=== PATIENT | male | born 1955 | race African-American/Black ===

== ENCOUNTER 2020-11-08 12:30 | Outpatient (REF) | payer OTHER, SELFPAY ==
[2020-11-08 12:45] LABS: MANUAL DIFF FLAG NO
[2020-11-08 13:04] LABS: Basophils Percent Auto 0.4 % (0-2); Eosinophils Absolute Auto 0.2 X10*3/uL (0.0-0.4); Eosinophils Percent Auto 2.9 % (0-4); Hematocrit 41.8 % (42-52); Hemoglobin 14.2 g/dl (14.0-18.0); Imm Gran Abs Auto 0.02 X10*3/uL (0.00-0.03); Imm Gran Pct Auto 0.3 % (0.0-0.4); Lymphocytes Absolute Auto 2.6 X10*3/uL (1.2-4.9); Lymphocytes Percent Auto 32.9 % (20-40); Mean Corpuscular Hemoglobin 29.9 pg (27.0-33.0); Mean Platelet Volume 13.3 fL (9.4-12.4); Monocytes Absolute Auto 0.5 X10*3/uL (0.1-1.2); Monocytes Percent Auto 5.9 % (2-11); Neutrophils Absolute Auto 4.5 X10*3/uL (2.0-8.3); Neutrophils Percent Auto 57.6 % (45-73); Platelet Count 158 X10*3/uL (160-400); Red Blood Count 4.75 X10*6/uL (4.60-5.80); Red Cell Distribution Width 13.1 % (11.0-16.0); White Blood Count 7.8 X10*3/uL (4.8-10.8)
[2020-11-08 14:08] LABS: Alanine Aminotransferase 22 U/L (0-40); Albumin Level 4.2 g/dL (3.5-5.0); Alkaline Phosphatase 99 U/L (39-117); Anion Gap 11 (12-20); Aspartate Amino Transferase 20 U/L (5-37); Bilirubin Total 0.6 mg/dL (0.0-1.0); Blood Urea Nitrogen 20 mg/dL (9-16); Calcium 8.9 mg/dL (8.4-10.2); Carbon Dioxide 26 mmol/L (22-29); Chloride 108 mmol/L (96-108); Cholesterol 199 mg/dL; Estimated Glomerular Filt Rate 49; Glucose Fasting 88 mg/dL (60-99); HDL Cholesterol 40 mg/dL; LDL Cholesterol Calculated 147 mg/dl; Potassium 3.6 mmol/l (3.3-5.1); Sodium 141 mmol/L (135-145); Total Protein 6.8 g/dL (6.5-8.0); Triglycerides 60 mg/dL
[2020-11-08 14:16] LABS: Prostate Specific Antigen 0.12 ng/mL (<0.05-4.0)
== END 2020-11-08 12:31 | disposition home or self-care (01) ==
LOC: HO.LAB 12:30
PROVIDERS: PCP Internal Medicine Medical Oncology; Visit Provider Internal Medicine Medical Oncology
DX: C61 Malignant neoplasm of prostate (principal); E66.3 Overweight; I10 Essential (primary) hypertension
CPT/HCPCS: 36415; 80053; 80061; 84153; 85025

== ENCOUNTER → 2020-12-09 10:08 | Outpatient (BNVA) | payer OTHER, SELFPAY | PROVIDERS: PCP Internal Medicine Medical Oncology; Visit Provider Urology | DX: C61 Malignant neoplasm of prostate (principal); R39.12 Poor urinary stream | CPT/HCPCS: 51798; 81002 ==

== ENCOUNTER → 2021-01-14 13:52 | Outpatient (BNVA) | payer OTHER, SELFPAY | PROVIDERS: PCP Internal Medicine Medical Oncology; Visit Provider Urology | DX: C61 Malignant neoplasm of prostate (principal); R39.12 Poor urinary stream | CPT/HCPCS: 52000; 81002 ==

== ENCOUNTER → 2021-02-15 15:07 | Outpatient (BNVA) | payer OTHER, SELFPAY | PROVIDERS: PCP Internal Medicine Medical Oncology; Visit Provider Urology ==

== ENCOUNTER 2024-06-30 11:29 | Outpatient (REF) | payer BC, SELFPAY ==
[2024-06-30 11:50] LABS: MANUAL DIFF FLAG NO
[2024-06-30 12:04] LABS: Basophils Absolute Auto 0.1 X10*3/uL (0.0-0.2); Basophils Percent Auto 0.8 % (0-2); Eosinophils Absolute Auto 0.3 X10*3/uL (0.0-0.4); Eosinophils Percent Auto 3.2 % (0-4); Hematocrit 45.5 % (42.0-52.0); Hemoglobin 15.7 g/dl (14.0-18.0); Imm Gran Abs Auto 0.04 X10*3/uL (0.00-0.03); Imm Gran Pct Auto 0.4 % (0.0-0.4); Lymphocytes Percent Auto 21.5 % (20-40); Mean Corpuscular HGB Conc 34.5 g/dl (31.0-36.0); Mean Corpuscular Hemoglobin 30.5 pg (27.0-33.0); Mean Corpuscular Volume 88.5 fL (80.0-98.0); Mean Platelet Volume 12.3 fL (9.4-12.4); Monocytes Absolute Auto 0.9 X10*3/uL (0.1-1.2); Monocytes Percent Auto 9.5 % (2-11); Neutrophils Absolute Auto 5.9 x10*3/uL (2.0-8.3); Neutrophils Percent Auto 64.6 % (45-73); Platelet Count 207 X10*3/uL (160-400); Red Blood Count 5.14 X10*6/uL (4.60-5.80); Red Cell Distribution Width 12.8 % (11.0-16.0); White Blood Count 9.1 X10*3/uL (4.8-10.8)
[2024-06-30 12:39] LABS: Alanine Aminotransferase 71 U/L (0-40); Albumin Level 4.3 g/dL (3.5-5.0); Alkaline Phosphatase 123 U/L (39-117); Anion Gap 13 (12-20); Aspartate Amino Transferase 39 U/L (5-37); Bilirubin Total 0.5 mg/dL (0.0-1.0); Blood Urea Nitrogen 42 mg/dL (9-16); Calcium 10.2 mg/dL (8.4-10.2); Carbon Dioxide 28 mmol/L (22-29); Chloride 105 mmol/L (96-108); Estimated Glomerular Filt Rate 39; Glucose Random 93 mg/dL (60-115); Potassium 3.9 mmol/L (3.3-5.1); Sodium 142 mmol/L (135-145); Total Protein 7.5 g/dL (6.5-8.0)
[2024-06-30 12:50] LABS: Prostate Specific Antigen 0.22 ng/mL (<0.05-4.0)
== END 2024-06-30 11:30 | disposition home or self-care (01) ==
LOC: HO.LAB 11:29
PROVIDERS: PCP Internal Medicine Medical Oncology; Visit Provider Internal Medicine Medical Oncology
DX: D36.9 Benign neoplasm, unspecified site (principal)
CPT/HCPCS: 36415; 80053; 84153; 85025

== ENCOUNTER 2024-07-04 09:11 | Outpatient (REF) | payer BC, SELFPAY ==
--- NOTE | ~2024-07-04 | US_ITS ---
EXAMINATION: ULTRASOUND OF KIDNEYS WITH RENAL ARTERY DOPPLER CLINICAL INFORMATION: Hypertension. COMPARISON: None available. TECHNIQUE: Ultrasound of the kidneys was performed along with color flow Doppler imaging and velocity measurements in the proximal mid and distal renal arteries. Aortic velocities were measured and renal/aortic ratios were calculated. Interlobar resistive indices were measured bilaterally. FINDINGS: The kidneys appeared normal with the exception of mild pelvocaliectasis on the right. The right kidney measures 9.7 x 4.0 x 5.4 cm and the left kidney measures 10.1 x 5.0 x 4.5 cm. No renal masses, renal stones or hydronephrosis is seen. Renal cortical thickness appears normal. Velocity measurements in the proximal mid and distal renal arteries are within normal limits with the exception of an elevated velocity at the right renal ostia of 193 cm/s (180 cm/s is considered the upper limits of normal). Velocity in the aorta is 74 cm/s and, therefore, the renal aortic ratios are normal, 2.6 on the right and 2.1 on the left. Interlobar resistive indices were measured bilaterally and are all normal. US/US renal doppler IMPRESSION: 1. There is mild pelvocaliectasis on the right. 2. Borderline elevated velocities in the right proximal renal artery. 3. CTA of the kidneys could be useful along with delayed views (CT urogram) to evaluate the right collecting system. Electronically signed by: Gama Donaldson MD 07/09/2024 05:05 PM EDT
--- NOTE | ~2024-07-04 | US_ITS ---
EXAMINATION: ULTRASOUND OF KIDNEYS WITH RENAL ARTERY DOPPLER CLINICAL INFORMATION: Hypertension. COMPARISON: None available. TECHNIQUE: Ultrasound of the kidneys was performed along with color flow Doppler imaging and velocity measurements in the proximal mid and distal renal arteries. Aortic velocities were measured and renal/aortic ratios were calculated. Interlobar resistive indices were measured bilaterally. FINDINGS: The kidneys appeared normal with the exception of mild pelvocaliectasis on the right. The right kidney measures 9.7 x 4.0 x 5.4 cm and the left kidney measures 10.1 x 5.0 x 4.5 cm. No renal masses, renal stones or hydronephrosis is seen. Renal cortical thickness appears normal. Velocity measurements in the proximal mid and distal renal arteries are within normal limits with the exception of an elevated velocity at the right renal ostia of 193 cm/s (180 cm/s is considered the upper limits of normal). Velocity in the aorta is 74 cm/s and, therefore, the renal aortic ratios are normal, 2.6 on the right and 2.1 on the left. Interlobar resistive indices were measured bilaterally and are all normal. US/US renal BI IMPRESSION: 1. There is mild pelvocaliectasis on the right. 2. Borderline elevated velocities in the right proximal renal artery. 3. CTA of the kidneys could be useful along with delayed views (CT urogram) to evaluate the right collecting system. Electronically signed by: Gama Donaldson MD 07/09/2024 05:05 PM EDT
== END 2024-07-04 09:12 | disposition home or self-care (01) ==
LOC: HO.US 09:11
PROVIDERS: PCP Internal Medicine Medical Oncology; Visit Provider Internal Medicine Medical Oncology
DX: I12.9 Hypertensive chronic kidney disease with stage 1 through stage 4 chronic kidney disease, or unspecified chronic kidney disease (principal); N18.31 Chronic kidney disease, stage 3a
CPT/HCPCS: 76775; 93975

== ENCOUNTER 2024-07-18 09:51 | Outpatient (REF) | payer BC, SELFPAY ==
[2024-07-18 11:22] LABS: Blood Urea Nitrogen 24 mg/dL (9-16); Estimated Glomerular Filt Rate 52
[2024-07-18 11:30] LABS: Prostate Specific Antigen 0.31 ng/mL (<0.05-4.0)
== END 2024-07-18 09:52 | disposition home or self-care (01) ==
LOC: HO.LAB 09:51
PROVIDERS: PCP Internal Medicine Medical Oncology; Visit Provider Internal Medicine Medical Oncology
DX: C61 Malignant neoplasm of prostate (principal); E66.3 Overweight; N18.31 Chronic kidney disease, stage 3a; I10 Essential (primary) hypertension; Z12.5 Encounter for screening for malignant neoplasm of prostate
CPT/HCPCS: 36415; 82565; 84153; 84520

== ENCOUNTER 2025-02-20 14:06 | Outpatient (AMB) | payer BC, SELFPAY ==
--- NOTE | 2025-02-20 14:16 | MHC.OFFVIS ---
Intake Visit Reasons: Prostate cs- transfer of care Intake Note: Patient is present for PROSTATE- TRANSFER OF CARE Urology Medication:TAMSULOSIN,OXYBUTYNIN Antibiotic Allergy:NONE Blood Thinner:NONE Automatic Pilot Mechanic Required: No Allergies No Known Allergies Allergy (Verified 02/20/25 14:17) HPI Comments Details: Familia is a very pleasant male. He is a patient of Dr. Tobar. He is seen for the following urologic conditions - prostate cancer - recurrent PSA Slowly rising PSA Recently completed PET-CT scan at [facility] No evidence of PSMA recurrence We will continue to follow PSA every six-month Rising PSA Imaging - 10/14 PET-CT no evidence of PSA recurrence Prostate cancer Main issue is weakness of stream, feelings of burning Diagnosed with prostate cancer in 2013. Primary therapy robotic assisted laparoscopic prostatectomy at [facility] Current PSA - 11/11 0.12, 07/15 0.3 Cystoscopy 01/09 - open bladder neck [facility] Medical History Frequent urination History of prostate cancer Family History Brother Prostate cancer Review of Systems Const Denies chills and Denies fever(s) Card Reports no additional complaints and Denies syncope Resp Denies cough GI Denies abdominal pain and Denies heartburn Reports as per HPI and Denies change in libido Neuro Denies syncope Psych Denies change in libido Endo Denies change in libido Physical Exam Const General: cooperative, healthy appearing, comfortable and no acute distress Orientation/consciousness: patient oriented x3 HEENT Face and sinus: Yes normal facial exam Mouth: moist mucous membranes Neck Neck: Yes normal visual inspection, Yes full ROM and Yes trachea midline Chest Chest palpation & inspection: normal inspection of the chest Resp Effort & Inspection: normal respiratory effort, able to speak in complete sentences and no respiratory distress GI Inspection: Yes normal to inspection Back/Spine/Pelvis Cervical Spine: normal cervical lordosis Thoracic/Lumbar Spine: thoracic and lumbar spine normal to inspection Skin General skin exam: no rashes or lesions noted Neuro General: patient oriented x3, gait normal, tone normal and moves all extremities Extrem General: Yes normal to inspection and Yes capillary refill normal Assessment & Plan Assessment & Plan (1) Prostate cancer: Code(s): C61 - Malignant neoplasm of prostate Category: Medical (2) Weak urinary stream: Code(s): R39.12 - Poor urinary stream Category: Medical Plan Six-month follow-up repeat PSA office Orders: Orders Prostate Specific Antigen 6 Months C61 - Malignant neoplasm of prostate Patient Instructions: This note is constructed using voice recognition software. While every effort has been made to ensure accuracy crushing foreman errors may have been included. Imaging studies, laboratory and physical exam results were discussed and reviewed in detail. No major barriers to patient understanding were identified. An opportunity to ask questions regarding the treatment plan was provided. All questions were answered. The patient expressed understanding and agreement with the above treatment plan. The patient is aware they should contact our office by phone for worsening of their current condition or the appearance of new urologic symptoms. Compliance is encouraged with any medications and followup testing that is ordered. It is a privilege to participate in the urologic care of your patient. If you have any questions or concerns regarding treatment for the above conditions, or other urologic issues, please do not hesitate to contact me. The office telephone contact is [phone]. Sincerely, Dr Cameron Wright MD, [facility] - Urology Compassionate Specialist Care for the Genitourinary System Coding Level of Care Code Est Pt Level 3 (98878) Complex EM visit Add On G2211 Diagnoses Prostate cancer C61 Weak urinary stream R39.12
--- OUTSIDE RECORDS SUMMARY | 2025-02-20 14:24 | XMS_ITS | Patient Health Record ---
Author Organization Man Tobar III, MD Address [address] [address] Care Team Providers Care Astronomy Instructor Name Role Phone Man Tobar Primary Care Provider Allergies Allergen (clinical drug ingredient) Drug/Non Drug Allergy documented on EMR Reaction Allergy Type Onset Date Status Penicillin Unknown Drug Allergy Active Results Component Value Reference Range Notes US renal doppler Reviewed date:07/21/2024 06:00:41 AM Interpretation: Performing Lab: Notes/Report: [address] [address] Ultrasound Report Signed Patient: Familia Pop MR#: [id number] : 1955 Acct:[id number] Age/Sex: 68 / M ADM Date: 07/04/24 Loc: .US Attending Dr: Man Tobar MD Ordering Physician: Man Tobar MD Date of Service: 07/04/24 Procedure(s): US renal doppler Accession Number(s): [id number] cc: Man Tobar MD EXAMINATION: ULTRASOUND OF KIDNEYS WITH RENAL ARTERY DOPPLER CLINICAL INFORMATION: Hypertension. COMPARISON: None available. TECHNIQUE: Ultrasound of the kidneys was performed along with color flow Doppler imaging and velocity measurements in the proximal mid and distal renal arteries. Aortic velocities were measured and renal/aortic ratios were calculated. Interlobar resistive indices were measured bilaterally. FINDINGS: The kidneys appeared normal with the exception of mild pelvocaliectasis on the right. The right kidney measures 9.7 x 4.0 x 5.4 cm and the left kidney measures 10.1 x 5.0 x 4.5 cm. No renal masses, renal stones or hydronephrosis is seen. Renal cortical thickness appears normal. Velocity measurements in the proximal mid and distal renal arteries are within normal limits with the exception of an elevated velocity at the right renal ostia of 193 cm/s (180 cm/s is considered the upper limits of normal). Velocity in the aorta is 74 cm/s and, therefore, the renal aortic ratios are normal, 2.6 on the right and 2.1 on the left. Interlobar resistive indices were measured bilaterally and are all normal. US/US renal doppler IMPRESSION: 1. There is mild pelvocaliectasis on the right. 2. Borderline elevated velocities in the right proximal renal artery. 3. CTA of the kidneys could be useful along with delayed views (CT urogram) to evaluate the right collecting system. Electronically signed by: Gama Donaldson MD 07/09/2024 05:05 PM EDT Dictated By: Gama Donaldson MD Signed By: <Electronically signed by Gama Donaldson MD in OV> 07/09/24 1705 DD/ 0954 TD/TT: 07/04/24 1012 Public Administration Teacher: [place] [address] Ultrasound Report Signed Patient: Estrada Pop MR#: [id number] : 1955 Acct:[id number] Age/Sex: 68 / M ADM Date: 07/04/24 Loc: .US Attending Dr: Man Tobar MD Ordering Physician: Man Tobar MD Date of Service: 07/04/24 Procedure(s): US lory al doppler Accession Number(s): [id number] cc: Man Tobar MD EXAMINATION: ULTRASOUND OF KIDNEY S WITH RENAL ARTERY DOPPLER CLINICAL INFORMATION: Hypertension. COMPARISON: None available. TECHNIQUE: Ultrasound of the kidneys was performed along with color flow Doppler imaging and velocity measurements in the proximal mid and distal renal arteries. Aortic velocities were measured and renal/aortic ratios were calculated. Interlob ar resistive indices were measured bilaterally. FINDINGS: The kidneys appeared normal with the exception of mild pelvocaliectasis on the right. The ri ght kidney measures 9.7 x 4.0 x 5.4 cm and the left kidney measures 10.1 x 5.0 x 4.5 cm. No renal masses, renal stones or hydronephrosis is se en. Renal cortical thickness appears normal. Velocity measurement s in the proximal mid and distal renal arteries are within normal limits with the exception of an elevated velocity at the right renal ostia of 193 cm/s (180 cm/s is considered the upper limits of normal). Velocity in the aort a is 74 cm/s and, therefore, the renal aortic ratios are normal, 2 .6 on the right and 2.1 on the left. Interlobar resistive indices we re measured bilaterally and are all normal. U S/US renal doppler IMPRESSION: 1. There is mild pelvocaliectasis on the right. 2. Borderline elevat ed velocities in the right proximal renal artery. 3. CTA of the kidney s could be useful along with delayed views (CT urogram) to evaluate the right collecting system. Electronically christine d by: Gama Donaldson MD 07/09/2024 05:05 PM EDT RP Dictated By: Gama Donaldson MD Signed By: <Electronically signed by Gama Donaldson MD in OV> 07/09/24 1705 DD/ 0954 TD/TT: 07/04/24 1012 Public Administration Teacher: US renal BI Reviewed date:07/21/2024 06:00:41 AM Interpretation: Performing Lab: Notes/Report: [address] [address] Ultrasound Report Signed Patient: Familia Pop MR#: [id number] : 1955 Acct:[id number] Age/Sex: 68 / M ADM Date: 07/04/24 Loc: HO.US Attending Dr: Man Tobar MD Ordering Physician: Man Tobar MD Date of Service: 07/04/24 Procedure(s): US renal BI Accession Number(s): [id number] cc: Man Tobar MD EXAMINATION: ULTRASOUND OF KIDNEYS WITH RENAL ARTERY DOPPLER CLINICAL INFORMATION: Hypertension. COMPARISON: None available. TECHNIQUE: Ultrasound of the kidneys was performed along with color flow Doppler imaging and velocity measurements in the proximal mid and distal renal arteries. Aortic velocities were measured and renal/aortic ratios were calculated. Interlobar resistive indices were measured bilaterally. FINDINGS: The kidneys appeared normal with the exception of mild pelvocaliectasis on the right. The right kidney measures 9.7 x 4.0 x 5.4 cm and the left kidney measures 10.1 x 5.0 x 4.5 cm. No renal masses, renal stones or hydronephrosis is seen. Renal cortical thickness appears normal. Velocity measurements in the proximal mid and distal renal arteries are within normal limits with the exception of an elevated velocity at the right renal ostia of 193 cm/s (180 cm/s is considered the upper limits of normal). Velocity in the aorta is 74 cm/s and, therefore, the renal aortic ratios are normal, 2.6 on the right and 2.1 on the left. Interlobar resistive indices were measured bilaterally and are all normal. US/US renal BI IMPRESSION: 1. There is mild pelvocaliectasis on the right. 2. Borderline elevated velocities in the right proximal renal artery. 3. CTA of the kidneys could be useful along with delayed views (CT urogram) to evaluate the right collecting system. Electronically signed by: Gama Donaldson MD 07/09/2024 05:05 PM EDT Dictated By: Gama Donaldson MD Signed By: <Electronically signed by Gama Donaldson MD in OV> 07/09/24 1705 DD/ 0954 TD/TT: 07/04/24 1012 Public Administration Teacher: [address] [address] Ultrasound Report Signed Patient: Estrada Pop MR#: [id number] : 1955 Acct:[id number] Age/Sex: 68 / M ADM Date: 07/04/24 Loc: HO.US Attending Dr: Man Tboar MD Ordering Physician: Man Tobar MD Date of Service: 07/04/24 Procedure(s): US lory al BI Accession Number(s): [id number] cc: Man Tobar MD EXAMINATION: ULTRASOUND OF KIDNEY S WITH RENAL ARTERY DOPPLER CLINICAL INFORMATION: Hypertension. COMPARISON: None available. TECHNIQUE: Ultrasound of the kidneys was performed along with color flow Doppler imaging and velocity measurements in the proximal mid and distal renal arteries. Aortic velocities were measured and renal/aortic ratios were calculated. Interlob ar resistive indices were measured bilaterally. FINDINGS: The kidneys appeared normal with the exception of mild pelvocaliectasis on the right. The ri ght kidney measures 9.7 x 4.0 x 5.4 cm and the left kidney measures 10.1 x 5.0 x 4.5 cm. No renal masses, renal stones or hydronephrosis is se en. Renal cortical thickness appears normal. Velocity measurement s in the proximal mid and distal renal arteries are within normal limits with the exception of an elevated velocity at the right renal ostia of 193 cm/s (180 cm/s is considered the upper limits of normal). Velocity in the aort a is 74 cm/s and, therefore, the renal aortic ratios are normal, 2 .6 on the right and 2.1 on the left. Interlobar resistive indices we re measured bilaterally and are all normal. U S/US renal BI IMPRESSION: 1. There is mild pelvocaliectasis on the right. 2. Borderline elevat ed velocities in the right proximal renal artery. 3. CTA of the kidney s could be useful along with delayed views (CT urogram) to evaluate the right collecting system. Electronically christine d by: Gama Donaldson MD 07/09/2024 05:05 PM EDT Dictated By: Gama Donaldson MD Signed By: <Electronically signed by Gama Donaldson MD in OV> 07/09/24 1705 DD/ 0954 TD/TT: 07/04/24 1012 Public Administration Teacher: COLE[place] Complete Blood Count Auto Di ff Reviewed date:07/02/2024 10:45:22 AM Interpretation: Performing Lab:[facility], [address] [place] [id number] Notes/Report: White Blood Count 9.1 4.8-10.8 X10*3/uL Red Blood Count 5.14 4.60-5.80 X10*6/uL Hemoglobin 15.7 14.0-18.0 g/dl Hematocrit 45.5 42.0-52.0 % Mean Corpuscular Volume 88.5 80.0-98.0 fL Mean Corpuscular Hemoglobin 30.5 27.0-33.0 pg Mean Corpuscular HGB Conc 34.5 31.0-36.0 g/dl Red Cell Distribution Width 12.8 11.0-16.0 % Platelet Count 207 160-400 X10*3/uL Mean Platelet Volume 12.3 9.4-12.4 fL Neutrophils Percent Auto 64.6 45-73 % Imm Gran Pct Auto 0.4 0.0-0.4 % Lymphocytes Percent Auto 21.5 20-40 % Monocytes Percent Auto 9.5 2-11 % Eosinophils Percent Auto 3.2 0-4 % Basophils Percent Auto 0.8 0-2 % NRBC Pct Auto 0.0 0.0-0.2 /100WBC Neutrophils Absolute Auto 5.9 2.0-8.3 x10*3/u L Imm Gran Abs Auto 0.04 0.00-0.03 X10*3/uL Lymphocytes Absolute Auto 2.0 1.2-4.9 X10*3/u L Monocytes Absolute Auto 0.9 0.1-1.2 X10*3/uL Eosinophils Absolute Auto 0.3 0.0-0.4 X10*3/u L Basophils Absolute Auto 0.1 0.0-0.2 X10*3/uL NRBC Abs Auto 0.000 0.0-0.012 X10*3/uL Comprehensive Met. Panel Reviewed date:07/02/2024 10:45:22 AM Interpretation: Performing Lab:[facility], [address] [place] [phone] Notes/Report: Sodium 142 135-145 mmol/L Potassium 3.9 3.3-5.1 mmol/L Chloride 105 96-108 mmol/L Carbon Dioxide 28 22-29 mmol/L Anion Gap 13 12-20 Blood Urea Nitrogen 42 9-16 mg/dL Creatinine 1.77 0.5-1.4 mg/dL Estimated Glomerular Filt Rate 39 NOTE: For -[place] individuals, multiply the result by 1.210. Chronic Kidney Disease: Estimated GFR < 60 mL/min/1.73m2 Severe Kidney Disease: Estimated GFR < 15 mL/min/1.73m2 Glucose Random 93 60-115 mg/dL Calcium 10.2 8.4-10.2 mg/dL Bilirubin Total 0.5 0.0-1.0 mg/dL Aspartate Amino Transferase 39 5-37 U/L Alanine Aminotransferase 71 0-40 U/L Total Protein 7.5 6.5-8.0 g/dL Albumin Level 4.3 3.5-5.0 g/dL Alkaline Phosphatase 123 39-117 U/L Prostate Specific Antigen Reviewed date:07/02/2024 10:45:22 AM Interpretation: Performing Lab:[facility], [address] [place] [phone] Notes/Report: Prostate Specific Antigen 0.22 <0.05-4.0 ng/mL PSA methodology: Garcia Alinity i Chemiluminescent Microparticle Immunoassay (CMIA) Blood Urea Nitrogen Reviewed date:08/04/2024 07:48:19 AM Interpretation: Performing Lab:[facility], [address] [place] [phone] Notes/Report: Blood Urea Nitrogen 24 9-16 mg/dL Creatinine Reviewed date:08/04/2024 07:48:19 AM Interpretation: Performing Lab:[facility], [address] [place] [phone] Notes/Report: Creatinine 1.36 0.5-1.4 mg/dL Estimated Glomerular Filt Rate 52 NOTE: For -[place] individuals, multiply the result by 1.210. Chronic Kidney Disease: Estimated GFR < 60 mL/min/1.73m2 Severe Kidney Disease: Estimated GFR < 15 mL/min/1.73m2 Prostate Specific Antigen Reviewed date:08/04/2024 07:48:19 AM Interpretation: Performing Lab:[facility], [address] [place] [phone] Notes/Report: Prostate Specific Antigen 0.31 <0.05-4.0 ng/mL PSA methodology: Garcia Alinity i Chemiluminescent Microparticle Immunoassay (CMIA) Reason For Referral Reason Consult and treat History of Prostate Cancer Diagnosis 1 Malignant neoplasm o f prostate (C61) Referral Organization Man Tobar III, MD Referring Provider First Name Man Referring Provider Last Name Amadou Referring Provider Speciality Internal M edicine Referred Provider Gage Lee Referred Provider Specialty Urology General Notes Yvonne Black 2023 01:59:43 PM EDT > Referral faxed with progress notes and attachments., Mauro 08/20/2024 11:06:50 AM > Dr. Tobar would like the patient to be seen sooner due to having pelvic pain base of penis. Reached out to the office to schedule an appointment, the office stated they have reached out to the patient regarding an outstanding balance the patient has. They spoke with the patient on 07/15/24 and they patient stated he was going to call their office back in which he did not. Patient was called from Dr. Tobar's office and made aware, Mauro08/21/2024 02:57:46 PM > Appointment was scheduled with the patient directly Referral Priority Routine Referral Appointment Date 09/02/2024 Reason Transfer of Care E valuate and Treat Prostate Cancer Diagnosis 1 Malignant neoplasm o f prostate (C61) Referral Organization Man Tobar III, MD Referring Provider First Name Man Referring Provider Last Name Amadou Referring Provider Speciality Internal M edicine Referred Provider Cameron Wright, ([place]) Referred Provider Specialty Urology General Notes Mauro 01/05/2025 10:47:04 AM > Referral faxed Referral Priority Routine Referral Appointment Date 02/20/2025 Medications Medication SIG (Take, Route, Frequency, Duration) Notes Start Date End Date Status Lisinopril 20 MG 1 tablet Orally Once a day 12/25/2024 Active Senna 8.6 MG 2 tablets at bedtime Orally Once a day 12/15/2024 Active amLODIPine Besylate 10 MG 1 tablet Orall y Once a day 12/25/2024 Active Acetaminophen 325 MG 2 capsules Orally e very 6 hrs 12/15/2024 Active Mirtazapine 7.5 MG 1 tablets at bedtime Orally Once a day 12/15/2024 Active Clopidogrel Bisulfate 75 MG 1 tablet Ora lly Once a day 12/15/2024 Active Atorvastatin Calcium 80 MG 1 tablet Oral ly Once a day Active Carvedilol 12.5 MG 1 tablet with food Orally Twice a day 12/15/2024 Active Aspirin 81 81 MG 1 tablet Orally Once a day 12/15/2024 Active Immunizations Vaccine Route Administration Date Status Comme nts Influenza Unknown 08/21/2014 Administered Social History Tobacco Use: Social History Observation Description Date Details (start date - stop date) Former Smoker NA - NA Tobacco Control (Standard) Question Answer Notes Tobacco use: Former smoker How long has it been since you last smoked? 3-6 months Problems Problem Type SNOMED Code ICD Code Onset Dates Problem Status W/U Status Risk Notes Problem 7264209 Former smoker (Z87.891) Active confirmed He stopped smoking during his last hospitalizati on. We made a plan for a strategy to prevent relapse in times of stress or illness. Problem Overweight (E66.3) Active confirmed His body mass index is 27. We have discussed his diet and nutrition. He will consume a diet low in calories, sodium and animal fat. Problem 516666000 Malignant neoplasm of prostate (C61) Active confirmed His PSA in August 2024 was 0.31 consistent with biochemical relapse. He had a PSMA PET CT scan October 01, 2024 that showed no sign of metastatic disease. He will continue to be followed by urology. Problem 81079920 Aphasia (R47.01) Active confirmed He is alert but aphasic. He is able to follow commands. His speech is understandabl e. He is not able to comprehend complex statements are commands. Problem Closed fracture of clavicle (83757408) Fracture of unspecified part of left clavicle, initial encounter for closed fracture (S42.002A) Active confirmed Fracture has healed but the bone is distorted. He reports it is not painful. Problem Allergy to penicillin (90138017) Allergy status to penicillin (Z88.0) Active confirmed Problem 75799661 Essential hypertension (I10) Active confirmed His blood pressure is currently stable and the current regimen was continued. The systolic blood pressure will be kept below 150. Problem 63342867 Depressive disorder, not elsewhere classified (F32.9) Active confirmed His depression is mild but present. He was continued on current therapy and will be followed carefully.. Problem 563950267 Urinary incontinence (R32) Active confirmed He continues to experience mild urinary incontinence. This is from the prostatectomy . Problem 455611837 Right hemiplegia (G81.91) Active confirmed He was able to walk with a cane. The right upper extremity is densely week. He continues home OT and PT. Problem 162846752 Expressive aphasia (R47.01) Active confirmed Problem 639229692 Adenomatous polyp (D36.9) Active confirmed Coronary colonoscopy November 18, 2014 he had a tubular adenoma of the colon. He is likely due for colonoscopy and will be referred. Problem 928306301 Chronic kidney disease, stage 3a (N18.31) Active confirmed His renal function has been stable lately. Most recent BUN is 21 with a creatinine of 1.53. 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 He was admitted to [facility] where he underwent thrombectomy but not a lytic therapy. He is now living at home. He has services and therapies. His blood pressure is stable. Problem 8850732 Right homonymous hemianopsia (H53.461) Active confirmed This deficit will be followed with speech ttherapy. Vital Signs Heart Rate 55 /min 01/02/2025 Temperature 97.9 degrees Fahrenheit 01/02/2025 Blood pressure diastolic 80 mm Hg 01/02/2025 Height 68 in 01/02/2025 Blood pressure systolic 135 mm Hg 01/02/2025 Weight 181 lbs 01/02/2025 BMI 27.52 kg/m2 01/02/2025 Encounters Encounter Location Date Provider Diagnosis Man Tobar III, MD [address] [place] [address] [place] [id number] 06/27/2024 Man Tobar Overweight E66.3 ; Essential hypertension I10 ; Malignant neoplasm of prostate C61 ; Depressive disorder, not elsewhere classified F32.9 ; Urinary incontinence R32 ; Tobacco dependence F17.200 and Adenomatous polyp D36.9 Man Tobar III, MD [address] [place] [address] [place] [address] 07/02/2024 Man Tobar Malignant neoplasm o f prostate C61 ; Overweight E66.3 ; Chronic kidney disease, stage 3a N18.31 ; Elevated blood pressure I10 ; Depressive disorder, not elsewhere classified F32.9 ; Urinary incontinence R32 and Tobacco dependence F17.200 Man Tobar III, MD [address] [place] [address] [place] [phone] 07/23/2024 Man Tobar Essential hypertensi on I10 ; Malignant neoplasm of prostate C61 ; Depressive disorder, not elsewhere classified F32.9 ; Urinary incontinence R32 ; Overweight E66.3 ; Tobacco dependence F17.200 and Chronic kidney disease, stage 3a N18.31 Man Tobar III, MD [address] [place] [address] [place] [address] 08/20/2024 Man Tobar Left groin pain R10. 32 ; Essential hypertension I10 ; Malignant neoplasm of prostate C61 ; Depressive disorder, not elsewhere classified F32.9 ; Urinary incontinence R32 ; Fracture of unspecified part of left clavicle, initial encounter for closed fracture S42.002A ; Former smoker Z87.891 ; Overweight E66.3 and Chronic kidney disease, stage 3a N18.31 Man Tobar III, MD [address] [place] [address] [place] [address] 01/02/2025 Man Tobar Essential hypertensi on I10 ; Cerebrovascular accident (CVA) due to occlusion of left middle cerebral artery I63.512 ; Overweight E66.3 ; Malignant neoplasm of prostate C61 ; Depressive disorder, not elsewhere classified F32.9 ; Urinary incontinence R32 ; Fracture of unspecified part of left clavicle, initial encounter for closed fracture S42.002A ; Chronic kidney disease, stage 3a N18.31 ; Former smoker Z87.891 ; Aphasia R47.01 ; Right hemiplegia G81.91 and Right homonymous hemianopsia H53.461 Man Tobar III, MD [address] [place] [address] [place] [address] 06/26/2024 Man Tobar III, MD [address] [place] [address] [place] [address] 07/02/2024 Man Tobar Chronic kidney disea se, stage 3a N18.31 and Elevated blood pressure I10 Man Tobar III, MD [address] [place] [address] [place] [address] 07/07/2024 Man Tobar III, MD [address] [place] [address] [place] [address] 07/15/2024 Man Tobar III, MD [address] [place] [address] [place] [address] 10/06/2024 Man Tobar III, MD [address] [place] [address] 12/15/2024 Man Tobar III, MD [address] [place] [place] [address] 12/17/2024 Man Tobar III, MD [address] [place] [address] 12/18/2024 Man Tobar III, MD [address] [place] [address] 12/19/2024 Man Tobar III, MD [address] [place] [address] 12/22/2024 Man Tobar III, MD [address] [place] [address] [place] [address] 12/24/2024 Man Tobar III, MD [address] [place] [address] [place] [address] 12/25/2024 Man Tobar III, MD [address] [place] [address] [place] [address] 12/26/2024 Man Tobar III, MD [address] [place] [address] 12/29/2024 Man Tobar III, MD [address] [place] [address] [place] [address] 12/30/2024 Man Tobar III, MD [address] [place] [address] [place] [address] 01/20/2025 Man Tobar III, MD [address] [place] [address] [place] [address] 01/20/2025 Man Tobar III, MD [address] [place] [address] 02/04/2025 Man Tobar III, MD [address] [place] [address] [place] [address] 02/13/2025 Man Tobar III, MD [address] [place] [address] [place] [address] 02/16/2025 Man Tobar Assessments Encounter Date Diagnosis (ICD Code) Assessment Notes Treat ment Notes Treatment Clinical Notes 06/27/2024 Overweight (ICD-10 - E66.3) His body mass index is 26. We have discussed diet and nutrition. I have explained the details of a low sodium low cholesterol weight reduction diet. We made a plan to lose weight at a rate of one half of a pound per week until the body mass index is in the middle of the normal range. 06/27/2024 Essential hypertension (ICD-10 - I10) He recently was hospitalized for several days with accelerated hypertension. He is now on 4 separate medications with a blood pressure almost in the normal range. He will be educated about a low-sodium diet and weight reduction. He will continue current medications. His medications will be adjusted as necessary to keep his blood pressure in a normal range. Will be seen frequently in the near future. He has agreed to come to the office and keep his appointments. 07/02/2024 Overweight (ICD-10 - E66.3) His body mass index is 26. I suggested stabilizing swayed at this level until we have dressed the renal function issue and the blood pressure issue. After that we will discuss weight reduction. 07/02/2024 Malignant neoplasm o f prostate (ICD-10 - C61) There is currently no sign of relapse. I have ordered a repeat PSA. 07/23/2024 Malignant neoplasm o f prostate (ICD-10 - C61) There is currently no sign of relapse. I have ordered a repeat PSA.He remains in clinical remission. 07/23/2024 Essential hypertension (ICD-10 - I10) He recently was hospitalized for several days with accelerated hypertension. He is now on 4 separate medications with a blood pressure almost in the normal range. He will be educated about a low-sodium diet and weight reduction. He will continue current medications. He says he has been compliant. His pressure remains 150/80. I have added hydralazine. 08/20/2024 Essential hypertension (ICD-10 - I10) He recently was hospitalized for several days with accelerated hypertension. He is now on 4 separate medications with a blood pressure almost in the normal range. He will be educated about a low-sodium diet and weight reduction. He will continue current medications. He says he has been compliant. His pressure remains 150/80. I have added hydralazine.Recent ultrasounds of his renal artery show no sign of renal artery stenosis. 08/20/2024 Left groin pain (ICD-10 - R10.32) This is likely residual pain from the prostatectomy and scar formation. No sign of malignancy was detected on examination. Observation will be put into effect. 01/02/2025 Essential hypertension (ICD-10 - I10) His blood pressure is currently stable and the current regimen was continued. The systolic blood pressure will be kept below 150. 01/02/2025 Cerebrovascular accident (CVA) due to occlusion of left middle cerebral artery (ICD-10 - I63.512) This occurred on October 05, 2025. He was admitted to [facility] where he underwent thrombectomy but not a lytic therapy. He is now living at home. He has services and therapies. His blood pressure is stable. 06/27/2024 Malignant neoplasm o f prostate (ICD-10 - C61) He will resume follow-up with urology. PSA has been ordered. There was no sign of recurrent disease on today's examination. His urinary incontinence after prostatectomy continuance. 07/02/2024 Chronic kidney disease, stage 3a (ICD-10 - N18.31) When he was admitted to [facility] recently his BUN was 21 with a creatinine of 1.9. On his current medical regimen which includes a diuretic chlorthalidone his BUN is 44 and his creatinine is 1.77. He will stop the chlorthalidone and hydrated. A repeat set of labs was ordered. If necessary he will see nephrology. An ultrasound to rule out renal artery stenosis is pending. 07/23/2024 Depressive disorder, not elsewhere classified (ICD-10 - F32.9) His depression is mild but present. He was continued on current therapy and will be followed carefully.. 08/20/2024 Malignant neoplasm o f prostate (ICD-10 - C61) There is currently no sign of relapse. I have ordered a repeat PSA.He remains in clinical remission. 01/02/2025 Overweight (ICD-10 - E66.3) His body mass index is 27. We have discussed his diet and nutrition. He will consume a diet low in calories, sodium and animal fat. 07/02/2024 Chronic kidney disease, stage 3a (ICD-10 - N18.31) 06/27/2024 Depressive disorder, not elsewhere classified (ICD-10 - F32.9) His depression is mild but present. He was continued on current therapy and will be followed carefully.. 07/02/2024 Elevated blood pressure (ICD-10 - I10) His blood pressure is significantly improved. He will return in 1 or 2 weeks to measure his blood pressure without the chlorthalidone. 07/23/2024 Urinary incontinence (ICD-10 - R32) He continues to experience mild urinary incontinence. This is from the prostatectomy. 08/20/2024 Depressive disorder, not elsewhere classified (ICD-10 - F32.9) His depression is mild but present. He was continued on current therapy and will be followed carefully.. 01/02/2025 Malignant neoplasm o f prostate (ICD-10 - C61) His PSA in August 2024 was 0.31 consistent with biochemical relapse. He had a PSMA PET CT scan October 01, 2024 that showed no sign of metastatic disease. He will continue to be followed by urology. 07/02/2024 Elevated blood pressure (ICD-10 - I10) 06/27/2024 Urinary incontinence (ICD-10 - R32) He continues to experience mild urinary incontinence. This is from the prostatectomy. 07/02/2024 Depressive disorder, not elsewhere classified (ICD-10 - F32.9) His depression is mild but present. He was continued on current therapy and will be followed carefully.. 07/23/2024 Overweight (ICD-10 - E66.3) His body mass index is 26. I suggested stabilizing swayed at this level until we have dressed the renal function issue and the blood pressure issue. After that we will discuss weight reduction. 08/20/2024 Urinary incontinence (ICD-10 - R32) He continues to experience mild urinary incontinence. This is from the prostatectomy. 01/02/2025 Depressive disorder, not elsewhere classified (ICD-10 - F32.9) His depression is mild but present. He was continued on current therapy and will be followed carefully.. 06/27/2024 Tobacco dependence (ICD-10 - F17.200) I have made him aware of all of the long-term consequences of smoking cigarettes. I have made him aware of the smoking cessation programs available [facility] and also recommended smoke Gil. 07/02/2024 Urinary incontinence (ICD-10 - R32) He continues to experience mild urinary incontinence. This is from the prostatectomy. 07/23/2024 Tobacco dependence (ICD-10 - F17.200) I have made him aware of all of the long-term consequences of smoking cigarettes. I have made him aware of the smoking cessation programs available [facility] and also recommended smoke Gil. 08/20/2024 Fracture of unspecified part of left clavicle, initial encounter for closed fracture (ICD-10 - S42.002A) Fracture has healed but the bone is distorted. He reports it is not painful. 01/02/2025 Urinary incontinence (ICD-10 - R32) He continues to experience mild urinary incontinence. This is from the prostatectomy. 06/27/2024 Adenomatous polyp (ICD-10 - D36.9) Coronary colonoscopy November 18, 2014 he had a tubular adenoma of the colon. He is likely due for colonoscopy and will be referred. 07/02/2024 Tobacco dependence (ICD-10 - F17.200) I have made him aware of all of the long-term consequences of smoking cigarettes. I have made him aware of the smoking cessation programs available [facility] and also recommended smoke Gil. 07/23/2024 Chronic kidney disease, stage 3a (ICD-10 - N18.31) When he was admitted to [facility] recently his BUN was 21 with a creatinine of 1.9. On his current medical regimen which includes a diuretic chlorthalidone his BUN is 44 and his creatinine is 1.77. He will stop the chlorthalidone and hydrated. A repeat set of labs was ordered. If necessary he will see nephrology. An ultrasound to rule out renal artery stenosis is pending. 08/20/2024 Former smoker (ICD-1 0 - Z87.891) He stopped smoking during his last hospitalization. We made a plan for a strategy to prevent relapse in times of stress or illness. 01/02/2025 Fracture of unspecified part of left clavicle, initial encounter for closed fracture (ICD-10 - S42.002A) Fracture has healed but the bone is distorted. He reports it is not painful. 08/20/2024 Overweight (ICD-10 - E66.3) His body mass index is 26. I suggested stabilizing swayed at this level until we have dressed the renal function issue and the blood pressure issue. After that we will discuss weight reduction. 01/02/2025 Chronic kidney disease, stage 3a (ICD-10 - N18.31) His renal function has been stable lately. Most recent BUN is 21 with a creatinine of 1.53. 08/20/2024 Chronic kidney disease, stage 3a (ICD-10 - N18.31) When he was admitted to [facility] recently his BUN was 21 with a creatinine of 1.9. On his current medical regimen which includes a diuretic chlorthalidone his BUN is 44 and his creatinine is 1.77. He will stop the chlorthalidone and hydrated. A repeat set of labs was ordered. If necessary he will see nephrology. An ultrasound to rule out renal artery stenosis is pending. 01/02/2025 Former smoker (ICD-1 0 - Z87.891) He stopped smoking during his last hospitalization. We made a plan for a strategy to prevent relapse in times of stress or illness. 01/02/2025 Aphasia (ICD-10 - R47.01) He is alert but aphasic. He is able to follow commands. His speech is understandable. He is not able to comprehend complex statements are commands. 01/02/2025 Right hemiplegia (ICD-10 - G81.91) He was able to walk with a cane. The right upper extremity is densely week. He continues home OT and PT. 01/02/2025 Right homonymous hemianopsia (ICD-10 - H53.461) This deficit will be followed with speech ttherapy. Plan Of Treatment Pending Test Test Name Order Date PROFILE, FASTING (COMPREHENSIVE METABOLI C) 01/02/2025 PROFILE, RANDOM (COMPREHENSIVE METABOLIC ) 08/13/2012 PROFILE, RANDOM (COMPREHENSIVE METABOLIC ) 10/21/2012 BUN 07/02/2024 LIPID PANEL 01/02/2025 PSA, TOTAL 01/02/2025 PSA, TOTAL 08/13/2012 PSA, TOTAL 07/02/2024 PSA, TOTAL 10/21/2012 CBC w DIFF 10/21/2012 CBC w DIFF 01/02/2025 CBC w DIFF 08/13/2012 Creatinine 07/02/2024 Next Appt Details Provider Name:Man Tobar, 02/20/2025 03:30:00 PM, [address] [place] [address] [address], [place]NN BENZ, [phone], Insurance Providers Payer Name Payer Address Payer Phone Subscriber Number Group Number Insured Name Patient Relationship to Insured Coverage Start Date Coverage End Date [facility] [address] [place], [place] [id number] John smiley Familia Self - patient is the insured Medical (General) History Medical History History ICD Code fractured left clavicle left hard palate pleomorphic adenoma hypertension depression prostate cancer: Prostatecto my May 07, 2012 [id number], apical invasion,[place] 3+4 tobacco dependence The patient has a history of urinary leakage and is on medication for blood pressure and cholesterol. 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
--- OUTSIDE RECORDS SUMMARY | 2025-02-20 14:24 | XMS_ITS ---
Author Organization Man Tobar III, MD Address [address] [place] [address] [place] [address] Care Team Providers Care Concrete Mixer Name Role Phone Man Tobar Primary Care Provider REASON FOR VISIT Message Encounters Encounter Location Date Provider Diagnosis Man Tobar III, MD [address] [place] [address] [place] [address] 02/16/2025 Man Tobar Plan Of Treatment Next Appt Details Provider Name:Man Tobar, 02/20/2025 03:30:00 PM, [address] [place] [address] [place], [phone], Progress Notes * DAINAFamilia LEWISDOB:[birth year] (69 yo M)Acc No.[id number]:02/16/2025 Patient:?Familia LAMA :1955???Age:69 Y???Sex:Male Address:[address] [place] [phone] * true * Date:? Generated for Printi ng/Faxing/eTransmitting on:?02/20/2025 02:23 PM EDT
--- OUTSIDE RECORDS SUMMARY | 2025-02-20 14:25 | XMS_ITS ---
Author Organization Man Tobar III, MD Address [address] [place] [address] Care Team Providers Care Plugman Name Role Phone Man Tobar Primary Care Provider REASON FOR VISIT FYI Encounters Encounter Location Date Provider Diagnosis Man Tobar III, MD [address] [place] [address] [place] [address] 02/13/2025 Man Tobar Plan Of Treatment Next Appt Details Provider Name:Man Tobar, 02/20/2025 03:30:00 PM, [address] [place] [address] [place], [address], Progress Notes * DAINAFamilia PEREZDOB:[birth year] (69 yo M)Acc No.[id number]:02/13/2025 Patient:?Familia LAMA :1955???Age:69 Y???Sex:Male Address:[address] [place] [phone] * true * Date:? Generated for Printi ng/Faxing/eTransmitting on:?02/20/2025 02:24 PM EDT
--- OUTSIDE RECORDS SUMMARY | 2025-02-20 14:25 | XMS_ITS ---
Author Organization Man Tobar III, MD Address [address] [place] [address] Care Team Providers Care Inspector Salvage Name Role Phone Man Tobar Primary Care Provider [phone] Allergies Allergen (clinical drug ingredient) Drug/Non Drug Allergy documented on EMR Reaction Allergy Type Onset Date Status Penicillin Unknown Drug Allergy Active REASON FOR VISIT Follow up Medications Medication SIG (Take, Route, Frequency, Duration) Notes Start Date End Date Status Acetaminophen 325 MG 2 capsules Orally e very 6 hrs 12/15/2024 Active Mirtazapine 7.5 MG 1 tablets at bedtime Orally Once a day 12/15/2024 Active Clopidogrel Bisulfate 75 MG 1 tablet Ora lly Once a day 12/15/2024 Active Carvedilol 12.5 MG 1 tablet with food Orally Twice a day 12/15/2024 Active Aspirin 81 81 MG 1 tablet Orally Once a day 12/15/2024 Active Lisinopril 20 MG 1 tablet Orally Once a day 12/25/2024 Active Senna 8.6 MG 2 tablets at bedtime Orally Once a day 12/15/2024 Active amLODIPine Besylate 10 MG 1 tablet Orall y Once a day 12/25/2024 Active Atorvastatin Calcium 80 MG 1 tablet Oral ly Once a day Active Social History Tobacco Use: Social History Observation Description Date Details (start date - stop date) Former Smoker NA - NA Tobacco Control (Standard) Question Answer Notes Tobacco use: Former smoker How long has it been since you last smoked? 3-6 months Encounters Encounter Location Date Provider Diagnosis Man Tobar III, MD [address] [place] [address] [place] [address] 02/20/2025 Man Chapmanne Plan Of Treatment Medication Medication Name Sig Start Date Stop Date Notes Acetaminophen 325 MG 2 capsules Orally every 6 hrs 025 Mirtazapine 7.5 MG 1 tablets at bedtime Orally Once a day 12/15/2024 Clopidogrel Bisulfate 75 MG 1 tablet Orally Once a day Carvedilol 12.5 MG 1 tablet with food O rally Twice a day 12/15/2024 Aspirin 81 81 MG 1 tablet Orally Once a day 12/15/2024 Lisinopril 20 MG 1 tablet Orally Once a day 12/25/2024 Senna 8.6 MG 2 tablets at bedtime Orally Once a day 12/15/2024 amLODIPine Besylate 10 MG 1 tablet Orally Once a day 12/25 Atorvastatin Calcium 80 MG 1 tablet Orally Once a day Next Appt Details Provider Name:Man Nguyenrne, 02/20/2025 03:30:00 PM, [address] [place] [address] [address] [place] [address], [place], [address], Progress Notes * Familia LAMADOB:[birth year] (69 yo M)Acc No.[id number]:02/20/2025 Progress Notes Patient:?DAINA, Familia Provider:?Man Tobar MD :1955???Age:69 Y???Sex:Male Darryl e:02/20/2025 Address:[address] [place], [place] [id number] Subjective: * Chief Complaints: * ???1. Follow up. * HPI: ???COVID-19 Screening:?Questions?Have you had any new onset fever, chills, cough, congestion, sore throat, shortness of breath, muscle aches??No * ROS:?General/Constitutional:?pain?only normal aches and pains.?Chills?denies.?Fatigue?admits.?Fever?denies.?ENT:?Decreased hearing?denies.?Respiratory:?Cough?denies.?Cardiovascular:?Chest pain with exertion?denies.?Dyspnea on exertion?denies.?Shortness of breath?denies.?Gastrointestinal:?Constipation?denies.?Decreased appetite?denies.?Diarrhea?denies.?Heartburn?denies.?Nausea?denies.?Rectal bleeding?denies.?Vomiting?denies.?Hematology:?bruising?denies.?petechiae?denies.?Swollen glands?none have been noted.?Genitourinary:?Frequent urination?denies.?Musculoskeletal:?Muscle aches?denies.?Painful joints?denies.?Sciatica?denies.?Weakness?denies.?Skin:?Itching?denies.?Rash?denies.?Skin lesion(s)?denies.?Neurologic:?Difficulty speaking?denies.?Dizziness?denies.?Headache?denies.?Low back pain?denies.?Psychiatric:?Depressed mood?denies.? 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 * Surgical History:?tonsillect emilie , excision of soft palate tumor , prostatectomy , No history . * Hospitalization/Major Diagno stic Procedure:?No history . * Family History:?Father: dece ased 40 yrs, stroke.?Mother: 53 yrs, renal failure, hypertension, myocardial infarction, diagnosed with HTN.?Siblings: twin brother diagnosed with prostate cancer in 02/2012, diagnosed with Cancer.?3 daughter(s) - healthy. .? His siblings have sickle cell trait. He has a twin brother who was recently diagnosed with prostate cancer. * Social History:?Tobacco Use:?Tobacco Control (Standard)?Tobacco use:?Former smoker ?How long has it been since you last smoked??3-6 months ???He is to [place] and is working. He was born in [place], [place]. Weight gain: The patient has been gaining weight since quitting smoking. Smoking: The patient quit smoking on the day he was hospitalized. * Medications:?Taking Atorvast atin Calcium 80 MG Tablet 1 tablet Orally Once a day , Taking Aspirin 81 81 MG Tablet Delayed Release 1 tablet Orally Once a day , Taking Carvedilol 12.5 MG Tablet 1 tablet with food Orally Twice a day , Taking Clopidogrel Bisulfate 75 MG Tablet 1 tablet Orally Once a day , Taking Mirtazapine 7.5 MG Tablet 1 tablets at bedtime Orally Once a day , Taking Acetaminophen 325 MG Capsule 2 capsules Orally every 6 hrs , Taking Senna 8.6 MG Tablet 2 tablets at bedtime Orally Once a day , Taking Lisinopril 20 MG Tablet 1 tablet Orally Once a day , Taking amLODIPine Besylate 10 MG Tablet 1 tablet Orally Once a day , Medication List reviewed and reconciled with the patient * Allergies:?Penicillin. Objective: * Vitals:? * Examination: ???General Examination: ?GENERAL APPEARANCE:?pleasant, well nourished, well developed, in no acute distress, calm and relaxed.?HEAD:?atraumatic, normocephalic.?EYES:?eomi, perrla, anicteric, conjugate.?EARS:?normal.?NOSE:?septum intact.?ORAL CAVITY:?normal, unremarkable.?NECK/THYROID:?no jugular venous distention, no carotid bruit, thyroid normal.?LYMPH NODES:?no enlarged lymph nodes,spleen normal.?SKIN:?no suspicious lesions, anicteric.?HEART:?no clicks, gallops, murmurs, or rubs, regular rhythm, S1, S2 normal, no s3, or vascular bruits.?LUNGS:?clear to auscultation .?BREASTS:??no masses palpable bilaterally.?ABDOMEN:?bowel sounds normal, no ascites, no organomegaly, no mass.?RECTAL EXAM:?not examined.?MUSCULOSKELETAL:?extremities unremarkable, no clubbing, cyanosis or edema.?PERIPHERAL PULSES:?normal.?NEUROLOGIC:?alert and oriented, cranial nerves 2-12 grossly intact, deep tendon reflexes 2+ symmetrical, motor strength normal upper and lower extremities, sensory exam intact.?PSYCH:?alert, oriented.? Assessment: Plan: * Treatment: * Images: * The named appointment provid er may or may not be the originator of this progress note, and it is not deemed complete until electronically signed by the appointment provider. Sign off status: Pending * Provider:?Man Tobar MD Date:?11/2024 Generated for Denise patricia/Emerson/eTlanismitting on:?02/20/2025 02:23 PM EDT History and Physical Notes * HPI (History of Present Illness) Category Sub-Category Detail Notes COVID-19 Screening Questions Have you had any new onset fever, chills, cough, congestion, sore throat, shortness of breath, muscle aches?: No Examination Category Sub-Category Detail Notes General Examination GENERAL APPEARANCE: pleasant , well nourished, well developed, in no acute distress, calm and relaxed HEAD: atraumatic, normocep halic EYES: eomi, perrla, anicte sukh, conjugate EARS: normal NOSE: septum intact NECK/THYROID: no jugular venous di stention, no carotid bruit, thyroid normal HEART: no clicks, gallops, murmurs, or rubs, regular rhythm, S1, S2 normal, no s3, or vascular bruits LUNGS: clear to auscultatio n ABDOMEN: bowel sounds normal, no ascites, no organomegaly, no mass NEUROLOGIC: alert and oriented, cranial nerves 2-12 grossly intact, deep tendon reflexes 2+ symmetrical, motor strength normal upper and lower extremities, sensory exam intact SKIN: no suspicious lesion s, anicteric PERIPHERAL PULSES: normal BREASTS: no masses palpable b ilaterally MUSCULOSKELETAL: extremities unremark able, no clubbing, cyanosis or edema LYMPH NODES: no enlarged lymph no scottie,spleen normal RECTAL EXAM: not examined PSYCH: alert, oriented ORAL CAVITY: normal, unremarkable
--- OUTSIDE RECORDS SUMMARY | 2025-02-20 14:25 | XMS_ITS | Clinical Summary ---
Author Organization [facility] Address [address] [place] [address] Care Team Providers Care Scheduling Specialist Name Role Phone Unavailable Primary Care Provider Unavailabl e Source Comments PLEASE NOTE, if this patient is a minor, it may be UNLAWFUL to discuss sensitive information that is contained in these records (such as FAMILY PLANNING, MENTAL HEALTH or SUBSTANCE ABUSE) with the minor patient's parent or other person without the patient's specific authorization.[facility] Social History Tobacco Use Types Packs/Day Years Used Date Smoking Tobacco: Never Assessed Sex and Gender Information Value Date Recorded Sex Assigned at Not on file Legal Sex Male 1:06 PM PDT Gender Identity Not on file Sexual Orientation Not on file Plan of Treatment Not on file Insurance [facility]
== END 2025-02-20 15:00 | disposition home or self-care (01) ==
LOC: HO.HUSH 14:07
PROVIDERS: PCP Internal Medicine Medical Oncology; Visit Provider Urology
DX: C61 Malignant neoplasm of prostate (principal); R39.12 Poor urinary stream
CPT/HCPCS: 99213

== ENCOUNTER → 2025-02-20 14:06 | Outpatient (BNVA) | payer BC, SELFPAY | PROVIDERS: PCP Internal Medicine Medical Oncology; Visit Provider Urology ==

== ENCOUNTER 2025-08-11 10:50 | Outpatient (REF) | payer BC, SELFPAY ==
--- OUTSIDE RECORDS SUMMARY | 2025-02-27 10:25 | XMS_ITS ---
Author Organization Man Tobar III, MD Address [address] [place] [address] [place] [address] Care Team Providers Care Collection Systems Foreman Name Role Phone Dr. Man Tobar III Primary Care Provider REASON FOR VISIT Discharge from OT & PT Encounters Encounter Location Date Provider Diagnosis Man Tobar III, MD [address] [place] [address] [address] [place] [address] 02/27/2025 Man Tobar Plan Of Treatment Next Appt Details Provider Name:Man Tobar , 09/22/2025 10:00:00 AM, [address] [place] [address] [address], [place], [address], Progress Notes * DAINA FamiliaDOB:[birth year] (69 yo M)Acc No.[id number]:02/27/2025 Patient: Ruiz SANTOSANAFamilia :1955 A ge:69 Y S ex:Male Address:[address] [place] [phone] * true * Date: Generated for Printi ng/Faxing/eTransmitting on: 01:20 PM EDT
--- OUTSIDE RECORDS SUMMARY | 2025-04-06 05:00 | XMS_ITS ---
Author Organization Man Tobar III, MD Address [address] [place] [address] [place] [address] Care Team Providers Care Comptroller Name Role Phone Dr. Man Tobar III Primary Care Provider Allergies Allergen (clinical drug ingredient) Drug/Non Drug Allergy documented on EMR Reaction Allergy Type Onset Date Status Penicillin Unknown Drug Allergy Active [place]ASON FOR VISIT [place] [facility] [place], Right hemiplegia, Left cerebral [...] Problem Status W/U Status Risk Notes Problem [id number] Seizure (R56.9) Active confirmed He has had [...] Date Provider Diagnosis Man Tobar III, MD [address] [place] [address] [place] [address] 04/06/2025 Man Tobar Seizure R56.9 ; Essential [...] Provider Name:Man Tobar , 09/22/2025 10:00:00 AM, [address] [place] [address] [address], [address], [place], [address], Progress Notes * Familia LAMADOB:[birth year] (69 yo M)Acc No.[id number]:04/06/2025 Patient: Familia BUNN Provider: Tran Tobar MD :1955 A ge:69 Y S ex:Male Date:04/06/2025 Address:[address] [place], [place] [id number] Subjective: * Chief Complaints: * [place] [facility] [place] after seizureRight hemiplegiaLeft cerebral infarctRight homonymous hemianopsiaDepartmental a dysphasiaHistory of prostate cancerHypertension * HPI: C OVID-19 Screening: He recently had an infarction in the distribution of his left middle cerebral artery leaving him with a right hemiplegia and a partial expressive aphasia. On March 30, 2025 he had a grand mal seizure lasting 10 minutes at home. He was transferred to [facility] emergency room and admitted overnight. [...] and is working. He was born in [place], [place]. Weight gain: The patient has been [...] 04/06/2025 Generated for Denise patricia/Emerson/Corrieitting on: 1 01:19 PM EDT History and Physical Notes * [...]
--- OUTSIDE RECORDS SUMMARY | 2025-04-17 06:15 | XMS_ITS ---
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 Man Tobar III Primary Care Provider [phone] Allergies Allergen (clinical drug ingredient) Drug/Non Drug [...] Provider Diagnosis Man Tobar III, MD [address] [place] [address] [address] [place] [address] 04/17/2025 Man Tobar Seizure R56.9 Assessments Encounter [...] Natalie Amadou , 09/22/2025 10:00:00 AM, [address] [place] [address] [address], [place], [address], Progress Notes * DAINAQuansdDOB:[birth year] (69 yo M)Acc No.[id number]:04/17/2025 Progress Notes Patient: Familia BUNN Provider: Tran Tobar MD :1955 A ge:69 Y S ex:Male Date:04/17/2025 Address:[address] [place], [place] [id number] Subjective: * Chief Complaints: * 1 . [...] Depression, prostate cancer: Prostatectomy May 07, 2012 [id number], apical invasion,Rin 3+4, Tobacco dependence, The patient [...] and is working. He was born in [place], [place]. Weight gain: The patient has been [...] provider. Sign off status: Pending * Provider: Tran Tobar MD Date: 0 04/17/2025 Generated for Denise patricia/Emerson/Michael on: 01:20 PM EDT History and Physical Notes * [...]
--- OUTSIDE RECORDS SUMMARY | 2025-04-21 09:30 | XMS_ITS ---
Author Organization Man Tobar III, MD Address [address] [place] [address] [place] [address] Care Team Providers Care Fiber Optics Engineer Name Role Phone Dr. Man Tobar III [...] Date Provider Diagnosis Man Tobar III, MD [address] [place] [address] [place] [address] 04/21/2025 Man Tobar Seizure R56.9 ; Occlusion [...] Provider Name:Man Tobar , 09/22/2025 10:00:00 AM, [address] [place] [address] [address], [address], [place], [address], Progress Notes * Familia LAMADOB:[birth year] (69 yo M)Acc No.[id number]:04/21/2025 Progress Notes Patient: Familia BUNN Provider: Tran Tobar MD :1955 A ge:69 Y S ex:Male Date:04/21/2025 Address:[address] [place], [place] [id number] Subjective: * Chief Complaints: * L eft [...] and is working. He was born in [place], [place]. Weight gain: The patient has been [...] MD Date: 0 04/21/2025 Generated for Denise patricia/Faxing/eTransmitting on: 1 01:19 PM EDT History and [...]
--- OUTSIDE RECORDS SUMMARY | 2025-04-27 10:59 | XMS_ITS ---
Author Organization Man Tobar III, MD Address [address] [place] [address] [place] [address] Care Team Providers Care String Winding Machine Operator Name Role Phone Dr. Man Tobar III Primary Care Provider [phone] REASON FOR VISIT pt needs RX for [...] W/U Status Risk Notes Problem Essential hypertension (42259239) Essential (primary) hypertension (I10) Active confirmed Encounters Encounter Location Date Provider Diagnosis Man Tobar III, MD [address] [place] [address] [place] [address] 04/27/2025 Man Tobar Seizure R56.9 and Essential [...] Provider Name:Man Tobar , 09/22/2025 10:00:00 AM, [address] [place] [address] [address], [place] [address], [place], [address], Progress Notes * Familia LAMADOB:[birth year] (69 yo M)Acc No.[id number]:04/27/2025 Patient: Familia BUNN :1955 A ge:69 Y S ex:Male Address:[address] [place] [address] * Refills Refill levETIRAcetam Tablet, 750 MG, [...] * Date: Generated for Denise patricia/Emerson/eTransmitting on: 01:20 PM EDT
--- OUTSIDE RECORDS SUMMARY | 2025-05-27 06:26 | XMS_ITS ---
Author Organization Man Tobar III, MD Address [address] [place] [address] Care Team Providers Care Dispersion Mixer Name Role Phone Dr. Man Tobar III Primary Care Provider REASON FOR VISIT Error Encounters Encounter Location Date Provider Diagnosis Man Tobar III, MD [address] [place] [address] [place] [address] 05/27/2025 Man Tobar Plan Of Treatment Next Appt Details Provider Name:Man Tobar , 09/22/2025 10:00:00 AM, [address] [place] [address] [address], [place], [address], Progress Notes * Familia LAMADOB:[birth year] (69 yo M)Acc No.[id number]:05/27/2025 Patient: Familia BUNN :1955 A ge:69 Y S ex:Male Address:[address] [place] [phone] Subjective: * Chief Complaints: * E rror * Medical History: * Surgical History: * Hospitalization/Major Diagno stic Procedure: * Medications: Objective: * Vitals: * Physical Examination: Assessment: Plan: * Treatment: * Procedure Codes: * true * Date: Generated for Printi ng/Faxing/eTransmitting on: 01:19 PM EDT
--- OUTSIDE RECORDS SUMMARY | 2025-06-16 10:30 | XMS_ITS ---
Author Organization Man Tobar III, MD Address [address] [place] [address] [place] [address] Care Team Providers Care K9 Handler Name Role Phone Dr. Man Tobar III [...] Date Provider Diagnosis Man Tobar III, MD [address] [place] [address] [place] [address] 06/16/2025 Man Tobar Seizure R56.9 and Occlusion [...] Provider Name:Man Tobar , 09/22/2025 10:00:00 AM, [address] [place] [address] AJ CONNOLLY, BROOKLYNN BENZ, [address], Progress Notes * Familia LAMADOB:[birth year] (69 yo M)Acc No.[id number]:06/16/2025 Progress Notes Patient: Familia BUNN Provider: Tran Tobar MD :1955 A ge:69 Y S ex:Male Date:06/16/2025 Address:[address] [place] [address], [id number] Subjective: * Chief Complaints: * 1 . [...] Depression, prostate cancer: Prostatectomy May 07, 2012 [id number], apical invasion,Rin 3+4, Tobacco dependence, The patient [...] and is working. He was born in [place], [place]. Weight gain: The patient has been [...] 0 06/16/2025 Generated for Denise patricia/Emerson/Michael on: 01:20 PM [...]
--- OUTSIDE RECORDS SUMMARY | 2025-06-23 06:00 | XMS_ITS ---
Author Organization Man Tobar III, MD Address [address] [place] [address] [place] [address] Care Team Providers Care Senior Mobile Solutions Architect Name Role Phone Dr. Man Tobar III Primary Care Provider Allergies Allergen (clinical drug ingredient) Drug/Non Drug Allergy documented on EMR Reaction Allergy Type Onset Date Status Penicillin Unknown Drug Allergy Active Reason For Referral Reason Consult and Treat Right Upper Extremity Pain After Stroke Please call [phone] Diagnosis 1 Shoulder pain, right (M25.511) Referral Organization Man Tobar III, MD Referring Provider First Name Man Referring Provider Last Name Amadou Referring Provider Speciality Internal M edicine Referred Provider [facility] Referred Provider Specialty Physical Med [facility] General Notes Yvonne Wade 06/24/2025 02:53:56 PM [...] Date Provider Diagnosis Man Tobar III, MD [address] [place] [address] [place] [address] 06/23/2025 Man Tobar Seizure R56.9 ; Cerebrovascular [...] October 05, 2025. He was admitted to [facility] where he underwent thrombectomy but not [...] Upper Extremity Pain After Stroke Please call [phone], [facility] Next Appt Details Follow Up: 3 Months, Reason: OV Provider Name:Man Tobar , 09/22/2025 10:00:00 AM, [address] [place] [address], [address], Progress Notes * Familia LAMADOB:[birth year] (69 yo M)Acc No.[id number]:06/23/2025 Progress Notes Patient: Familia BUNN Provider: Tran Tobar MD :1955 A ge:69 Y S ex:Male Date:06/23/2025 Address:[address] [place], [place] [id number] Subjective: * Chief Complaints: * S agging [...] that fits. I have referred him to [facility] spine and sports rehabilitation medicine facility for [...] and is working. He was born in [place], [place]. Weight gain: The patient has been [...] October 05, 2025. He was admitted to [facility] where he underwent thrombectomy but not [...] tablet, Orally, Once a day. ? Referral To:[facility] Physical Medicine Reason:Consult and Treat Right Upper Extremity Pain After Stroke Please call [phone] * Procedure Codes: * Preventive Medicine: Counseling: [...] 06/23/2025 Generated for Nadinei ng/Fageorgiag/eTransmitting on: 1 01:20 PM EDT History and Physical Notes * Examination Category [...] es 06/23/2025 [facility] Right Upper Extremity Pain After Stroke Please call [phone]
--- OUTSIDE RECORDS SUMMARY | 2025-06-25 13:00 | XMS_ITS ---
Author Organization Man Tobar III, MD Address [address] [place] [address] Care Team Providers Care Air Carrier Inspector Name Role Phone Dr. Man Tobar III Primary Care Provider [phone] REASON FOR VISIT Follow up Encounters Encounter Location Date Provider Diagnosis Man Tobar III, MD [address] [place] [address] [place] [address] 06/25/2025 Man Tobar Plan Of Treatment Next Appt Details Provider Name:Man Tobar , 09/22/2025 10:00:00 AM, [address] [place] [address] [address], [place], [address], Progress Notes * Familia LAMADOB:[birth year] (69 yo M)Acc No.[id number]:06/25/2025 Progress Notes Patient: Familia BUNN Provider: Tran Tobar MD :1955 A ge:69 Y S ex:Male Date:06/25/2025 Address:[address] [place] [id number] Subjective: * Chief Complaints: * 1 . [...] 06/25/2025 Generated for Denise patricia/Emerson/Michael on: 1 01:19 PM RANDALLT
--- OUTSIDE RECORDS SUMMARY | 2025-07-28 11:00 | XMS_ITS ---
Author Organization Man Tobar III, MD Address [address] [place] [address] DR HERNANDEZ [facility] [place] [address] Care Team Providers Care Dedicated Truck Driver Name Role Phone Dr. Man Tobar III Primary Care Provider REASON FOR VISIT Colorectal Cancer Screening Encounters Encounter Location Date Provider Diagnosis Man Tobar III, MD [address] [place] [address] [address] [place] [address] 07/28/2025 Man Tobar Plan Of Treatment Next Appt Details Provider Name:Man Tobar , 09/22/2025 10:00:00 AM, [address] [place] [address] [address], [place], [address], Progress Notes * Familia LAMADOB:[birth year] (69 yo M)Acc No.[id number]:07/28/2025 Patient: Ruiz Familia MUHAMMAD :1955 A ge:69 Y S ex:Male Address:[address] [place] [phone] * * Date:
--- OUTSIDE RECORDS SUMMARY | 2025-08-11 13:20 | XMS_ITS | Clinical Summary ---
Author Organization Formerly [facility] Address [address] [facility] [address] [place] [phone] Phone Care Team Providers Care Training Instructor Name Role Phone Man Tobar MD Primary Care Provider [phone] Allergies No known active allergies Medications acetaminophen (TYLENOL) 325 mg tablet Take 2 tablets (650 mg total) by mouth every 6 (six) hours as needed. 11/17/19 25 Active aspirin 81 mg chewable tabletIndications:p revention of cerebrovascular accident Take 1 tablet (81 mg total) by mouth daily. Indications: stroke prevention 11/17/19 25 Active atorvastatin (LIPITOR) 80 MG tablet Take 1 tablet (80 mg total) by mouth nightly at bedtime. 11/17/19 25 Active bisacodyl (MAGIC BULLET) [address] 1 suppository (10 mg total) rectally daily as needed for constipation. 11/17/19 25 Active carvedilol (COREG) 12.5 MG tablet Take 1 tablet (12.5 mg total) by mouth 2 (two) times a day. 11/17/19 25 Active chlorhexidine (PERIDEX) 0.12 % solution Use as directed 15 mL in the mouth or throat 2 (two) times a day. 11/17/19 25 Active clopidogrel (PLAVIX) 75 mg tabletIndications:c erebral thromboembolism prevention Take 1 tablet (75 mg total) by mouth daily. Indications: prevention for a blood clot going to the brain 11/17/19 25 Active lisinopril (PRINIVIL,ZESTRIL) 5 MG tablet Take 1 tablet (5 mg total) by mouth daily. 11/17/19 25 Active mirtazapine (REMERON) 7.5 MG tablet Take 1 tablet (7.5 mg total) by mouth nightly at bedtime. 11/17/19 Active polyethylene glycol (MIRALAX) 17 gram packet Take 17 g by mouth daily as needed for mild constipation. 11/17/19 Active senna (SENOKOT) 8.6 mg tablet Take 2 tablets by mouth nightly at bedtime. 11/17/19 Active white petrolatum (AQUAPHOR) 41 % Oint Apply topically as needed (dry nose). 11/17/19 Active Active Problems Problem Noted Date Diagnosed Date Acute ischemic left MCA stroke 10/29/2024 Social History Tobacco Use Types Packs/Day Years Used Date Smoking Tobacco: Never Assessed Education Answer Date Recorded Are you interested in more education? Not on trevor e 10/28/2024 Are you concerned about learning? Not on file 10/28/2024 No 10/28/2024 No 10/28/2024 Food Answer Date Recorded Within the past 6 months we worried whether our food would run out before we got money to buy more. Never True 10/29/2024 Within the past 6 months the food we bought just didn't last and we didn't have enough money to get more. Never True Residential Stability Answer Date Recor ded What is your housing situation today? I have todd sing 10/29/2024 How many times have you move d in the past 12 months? Zero (I did not move) 10/29/2024 Paying for Meds Answer Date Recorded Do you have trouble paying for medicines? No 10/29/2024 Paying Utility Bills Answer Date Record ed Do you have trouble paying your heating or elect ricity bill? No 10/29/2024 Transportation Answer Date Recorded Has the lack of transportati on kept you from medical appointments or from getting medications? No 10/29/2024 Digital Access Answer Date Recorded Yes 10/29/2024 Yes 10/29/2024 Do you have reliable internet access at home? No 10/29/2024 Do you have a device (e.g., phone, tablet, computer) with a working camera? Yes 10/29/2024 Intimate Partner Violence Answer Date R ecorded Are you denied basic needs s uch as food, clothing, or medical care? No 10/29/2024 In the past 12 months have y ou been in a relationship with a person who hurts, threatens, or tries to control you? No 10/29/2024 Are you denied basic needs s uch as food, clothing, or medical care? No 10/29/2024 In the past 12 months have y ou been in a relationship with a person who hurts, threatens, or tries to control you? No 10/29/2024 Sex and Gender Information Value Date Recorded Sex Assigned at Not on file Legal Sex Male 9:29 AM EST Gender Identity Male 10/28/2024 12:11 PM EST Sexual Orientation Don't know 10/28/2024 12 :11 PM EST Last Filed Vital Signs Vital Sign Reading Time Taken Comments Blood Pressure 146/71 11/17/2024 7:37 AM EST Pulse 63 11/17/2024 7:37 AM EST Temperature 37 C (98.6 F) 11/17/2024 7:37 AM EST Respiratory Rate 18 11/16/2024 8:27 PM EST Oxygen Saturation 100% 11/17/2024 7:37 AM EST Inhaled Oxygen Concentration - - Weight 74.8 kg (165 lb) 10/29/2024 5:43 PM EST Height 177.8 cm (5' 10 ) 10/29/2024 5:43 PM EST Body Mass Index 23.68 10/29/2024 5:43 PM EST Plan of Treatment Health Maintenance Due Date Last Done Comments BLOOD PRESSURE 1955 DEPRESSION SCREENING 1969 SMOKING Hx and SMOKELESS TOBACCO SCREENING 1970 HEPATITIS C SCREENING 12/21/1975 COLOGUARD 2002 COLONOSCOPY 2002 COLORECTAL CANCER SCREENING 2002 FIT TEST 2002 FOBT 2002 SIGMOIDOSCOPY 2002 VIRTUAL COLONOSCOPY 2002 PNEUMOCOCCAL VACCINES (50+ years) (1 of 1 - PCV) 12/21/2007 ZOSTER VACCINES (1 of 2) 12/21/2007 INFLUENZA VACCINE (#1) 2025 , 06/13/2021, 06/10/2020, Additional history exists COVID-19 VACCINE ( season) 2025 05/18/2022, 10/19/2021, 03/22/2021, Additional history exists CREATININE LEVEL 12/09/2025 12/09/2024, 08/2025, 11/24/2024, Additional history exists POTASSIUM LEVEL 12/09/2025 12/09/2024, 11/22, 11/24/2024, Additional history exists Adult Td,Tdap Booster 11/12/2028 11/12/2018 RSV VACCINE (1 - 1-dose 75+ series) 2032 HEPATITIS A VACCINES Aged Out No long er eligible based on patient's age to complete this topic HIB VACCINES Aged Out No longer eligi ble based on patient's age to complete this topic MENINGOCOCCAL VACCINES (ACWY) Aged Out No longer eligible based on patient's age to complete this topic MENINGOCOCCAL VACCINES (B) Aged Out N o longer eligible based on patient's age to complete this topic Medical Devices Not on file Procedures Procedure Name Priority Date/Time Associated Diagnosis Comments BASIC METABOLIC PANEL Routine 12/09/2024 5:45 AM EST Stage 3 chronic kidney disease, unspecified whether stage 3a or 3b CKD Essential hypertension, malignant from Last 3 Months or Most Recently Relevant to Health Maintenance Results * (ABNORMAL) Basic metabolic panel (12/09/2024 5:45 AM EST) SODIUM 145 133 - 146 mmol/L [facility] CHLORIDE 110(H) 96 - 108 mmol/L [facility] POTASSIUM 4.1 3.3 - 5.1 mmol/L [facility] CO2 26 21 - 35 mmol/L [facility] BUN 16 6 - 19 mg/dL [facility] CREATININE 1.20 0.5 - 1.5 mg/dL [facility] GLUCOSE 89 70 - 99 mg/dL [facility] CALCIUM 9.0 8.4 - 10.3 mg/dL [facility] EGFR 67 >59 mL/min/1.7 3m2 [facility] Comment:Estimated glomerular filtration rate calculated using the CKD-EPI refit equation. ANION GAP 13 10 - 20 mmol/L [facility] Blood 12/09/2024 5:45 AM EST 12/09/2024 1:01 PM EST us Nupur Krishnan MD LAB BLOOD ORDERABLES Final Res ult [address] [id number] from Last 3 Months or Most Recently Relevant to Health Maintenance Insurance BLUE CROSS OUT OF STATE PPO [employer] OUT OF STATE PPO [employer] OUT OF STATE PPO [employer] OUT OF STATE PPO [employer] OUT OF STATE PPO [employer] OUT OF STATE PPO Advance Directives For more information, please contact: [phone] (9AM - 5PM [facility], Sunday-Sunday) * Full Code (Latest Code Status on File) Date Activated Date Inactivated Comments 10/29/2024 5:12 PM Question Answer Comments Code Status Confirmed With: Patient Care Teams Training Instructor Relationship Specialty Start Date End Date Man Tobar MD [address] [place] [address] [place] [address] PCP - General Medical Oncology 10/28/24 Additional Source Comments The information contained in this document represents components of the legal health record. It is not the complete legal health record.Formerly [facility]
--- OUTSIDE RECORDS SUMMARY | 2025-08-11 13:20 | XMS_ITS | Clinical Summary ---
Author Organization [facility] Address [address] [place] [address] Care Team Providers Care Community Development Worker Name Role Phone Unavailable Primary Care Provider [...] Plan of Treatment Not on file Insurance [facility]
--- OUTSIDE RECORDS SUMMARY | 2025-08-11 13:20 | XMS_ITS | Patient Health Record ---
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 Man Tobar III Primary Care Provider Allergies Allergen (clinical drug ingredient) Drug/Non Drug Allergy documented on EMR Reaction Allergy Type Onset Date Status Penicillin Unknown Drug Allergy Active Reason For Referral Reason Transfer of Care E valuate and Treat Prostate Cancer Diagnosis 1 Malignant neoplasm o f prostate (C61) Referral Organization Man Tobar III, MD Referring Provider First Name Man Referring Provider Last Name Amadou Referring Provider Speciality Internal M edicine Referred Provider Cameron Wright ([place]) Referred Provider Specialty Urology General Notes Yvonne Wade 01/05/2025 10:47:04 AM > Referral faxed Referral Priority Routine Referral Appointment Date 02/20/2025 Reason prostate cancer Diagnosis 1 Malignant neoplasm o f prostate (C61) Referral Organization Man Tobar III, MD Referring Provider First Name Man Referring Provider Last Name Amadou Referring Provider Speciality Internal M edicine Referred Provider Gage Lee Referred Provider Specialty Urology General Notes Joann Wallace CMA 04/30 02:29:31 PM > I called [facility] they stated pt has appt with Dr Ezra Vazquez on 05/13/2025 at 11am Referral Priority Routine Referral Appointment Date 05/13/2025 Reason Consult and Treat Right Upper Extremity Pain After Stroke Please call [phone] Diagnosis 1 Shoulder pain, right (M25.511) Referral Organization Man Tobar III, MD Referring Provider First Name Man Referring Provider Last Name Amadou Referring Provider Speciality Internal M edicine [facility] Specialty Physical Med ольгаne General Notes Mauro Yvonne 06/24/2025 02:53:56 PM > Referral and progress note faxMauro [email or web address] 06/30/2025 10:53:54 AM > Patient has not been scheduled, patient has not been contacted. Referral Priority Routine Referral Appointment Date 07/14/2025 Medications Medication SIG (Take, Route, Frequency, Duration) Notes Start Date End Date Status levETIRAcetam 750 MG 1 tablet Orally Twi ce a day Active hydrALAZINE HCl 10 MG 1 tablet with food Orally twice a day 04/27/2025 Active Atorvastatin Calcium 80 MG 1 tablet Oral ly Once a day Active Aspirin 81 81 MG 1 tablet [...] bedtime Orally Once a day 12/15/2024 Active Lisinopril 20 MG 1 tablet Orally Once a day 12/25/2024 Active amLODIPine Besylate 10 MG 1 tablet Orall y Once a day 12/25/2024 Active Mirtazapine 7.5 MG 1 tablet Orally Once a day 04/06/2025 Active Immunizations Vaccine Route Administration Date Status Comme nts Influenza Unknown 08/21/2014 Administered Social History Tobacco Use: Social History Observation Description Date Details (start date - stop date) Former Smoker NA - NA Alcohol Screen Question Answer Notes Did you have a drink contain ing alcohol in the past year? Yes How often did you have a dri nk containing alcohol in the past year? Monthly or less (1 point) How many drinks did you have on a typical day when you were drinking in the past year? 1 or 2 drinks (0 point) How often did you have 6 or more drinks on one occasion in the past year? Never (0 point) Points 1 Interpretation Negative Tobacco Control (Standard) Question Answer Notes Tobacco use: Former smoker How long has it been since you last smoked? 3-6 months Problems Problem Type SNOMED Code ICD Code Onset Dates Problem Status W/U Status Risk Notes Problem 2783316 Former smoker (Z87.891) Active confirmed He stopped smoking during his last hospitalizatio n. We made a plan for a strategy to prevent relapse in times of stress or illness. Problem Overweight (739745946) Overweight (E66.3) Active confirmed His body mass index is 27. We have discussed his diet and nutrition. He will consume a diet low in calories, sodium and animal fat. Problem 364896560 Malignant neoplasm of prostate (C61) Active confirmed His PSA in August 2024 was 0.31 consistent with biochemical relapse. He had a PSMA PET CT scan October 01, 2024 that showed no sign of metastatic disease. He will continue to be followed by urology. Problem Essential hypertension (87648954) Essential (primary) hypertension (I10) Active confirmed Problem 99982244 Aphasia (R47.01) Active confirmed He is alert but aphasic. He is able to follow commands. His speech is understandable . He is not able to comprehend complex statements are commands. Problem Closed fracture of clavicle (14057012) Fracture of unspecified part of left clavicle, initial encounter for closed fracture (S42.002A) Active confirmed Fracture has healed but the bone is distorted. He reports it is not painful. Problem Allergy to penicillin (65573279) Allergy status to penicillin (Z88.0) Active confirmed Problem 35063627 Essential hypertension (I10) Active confirmed His blood pressure is currently stable and the current regimen was continued. The systolic blood pressure will be kept below 140. Problem 40936222 Depressive disorder, not elsewhere classified (F32.9) Active confirmed His depression is mild but present. He was continued on current therapy and will be followed carefully.. Problem 125444332 Urinary incontinence (R32) Active confirmed He continues to experience mild urinary incontinence. This is from the prostatectomy. Problem 420841485231740 Olecranon bursitis of right elbow (M70.21) Active confirmed Her course and treatment of this condition was explained to him and his brother. They will had the armrests the right and use a cushion. The armrest well be elevated to a point where the shoulder does not bear the weight of the paralyzed arm. Problem 97578594 Seizure (R56.9) Active confirmed He has had no further seizures. He has been compliant with the levetiracetam without side effects. He will continue on the current dose. Problem 423093348 Right hemiplegia (G81.91) Active confirmed He was able to walk with a cane. The right upper extremity is densely week. He continues home OT and PT. Problem 091536659 Expressive aphasia (R47.01) Active confirmed He has had a partial recovery of speech. He is able to verbalize some things and not others. He has significant word finding difficulty. Speech is fluent however. Problem 923768904 Adenomatous polyp (D36.9) Active confirmed Coronary colonoscopy November 18, 2014 he had a tubular adenoma of the colon. He is likely due for colonoscopy and will be referred. Problem 853401998 Chronic kidney disease, stage 3a (N18.31) Active confirmed His renal function has been stable lately. Most recent BUN is 21 with a creatinine of 1.53. 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 The right leg has recovered and he is ambulatory. Problem [id number] Cerebrovascula r accident (CVA) due to occlusion of left middle cerebral artery (I63.512) Active confirmed This occurred on October 05, 2025. He was admitted to [facility] where he underwent thrombectomy but not a lytic therapy. He is now living at home. He has services and therapies. His blood pressure is stable. Problem 2617852 Right homonymous hemianopsia (H53.461) Active confirmed This deficit will be followed with speech ttherapy. Vital Signs Heart Rate 50 /min 06/23/2025 Temperature 97.9 degrees Fahrenheit 06/23/2025 Blood pressure diastolic 79 mm Hg 06/23/2025 Height 68 in 06/23/2025 Blood pressure systolic 137 mm Hg 06/23/2025 Weight 176 lbs 06/23/2025 BMI 26.76 kg/m2 06/23/2025 Encounters Encounter Location Date Provider Diagnosis Man Tobar III, MD [address] [place] [address] [place], [place] [address] 08/20/2024 Man Tobar Left groin pain R10. 32 ; Essential hypertension I10 ; Malignant neoplasm of prostate C61 ; Depressive disorder, not elsewhere classified F32.9 ; Urinary incontinence R32 ; Fracture of unspecified part of left clavicle, initial encounter for closed fracture S42.002A ; Former smoker Z87.891 ; Overweight E66.3 and Chronic kidney disease, stage 3a N18.31 Man Tobar III, MD [address] [place] [address] [place] [address] 01/02/2025 Man Tobar Essential hypertensi on I10 [...] homonymous hemianopsia H53.461 Man Tobar III, MD [address] [place] [address] [place] [address] 02/20/2025 Man Tobar Essential hypertensi on I10 ; Cerebrovascular accident (CVA) due to occlusion of left middle cerebral artery I63.512 ; Malignant neoplasm of prostate C61 ; Depressive disorder, not elsewhere classified F32.9 ; Urinary incontinence R32 ; Fracture of unspecified part of left clavicle, initial encounter for closed fracture S42.002A ; Overweight E66.3 ; Chronic kidney disease, stage 3a N18.31 ; Former smoker Z87.891 ; Expressive aphasia R47.01 ; Right hemiplegia G81.91 ; Right homonymous hemianopsia H53.461 and Olecranon bursitis of right elbow M70.21 Man Tobar III, MD [address] [place] [address] [place] [address] 04/06/2025 Man Tobar Seizure R56.9 ; Essential hypertension I10 ; Malignant neoplasm of prostate C61 ; Depressive disorder, not elsewhere classified F32.9 ; Urinary incontinence R32 ; Fracture of unspecified part of left clavicle, initial encounter for closed fracture S42.002A ; Right hemiplegia G81.91 ; Occlusion of left middle cerebral artery I66.02 ; Overweight E66.3 and Former smoker Z87.891 Man Tobar III, MD [address] [place] [address] [place] [address] 04/21/2025 Man Tobar Seizure R56.9 ; Occlusion [...] homonymous hemianopsia H53.461 Man Tobar III, MD [address] [place] [address] [place] [address] 06/23/2025 Man Amadou Seizure R56.9 ; Cerebrovascular accident (CVA) due [...] R47.01 and Malignant neoplasm of prostate C61 Man Tobar III, MD [address] [place] [address] [place] [address] 07/28/2025 Man Tobar III, MD [address] [place] [address] [place] [address] 10/06/2024 Man Tobar III, MD [address] [place] [address] [place] [address] 12/15/2024 Man Tobar III, MD [address] [place] [address] [place] [address] 12/17/2024 Man Tobar III, MD [address] [place] [address] [place] [address] 12/18/2024 Man Tobar III, MD [address] [place] [address] [place] [address] 12/19/2024 Man Tobar III, MD [address] [place] [address] [place] [address] 12/22/2024 Man Tobar III, MD [address] [facility] [place] [address] 12/24/2024 Man Tobar III, MD [address] [facility] [place] [address] 12/25/2024 Man Tobar III, MD [address] [facility] [place] [address] 12/26/2024 Man Tobar III, MD [address] [facility] [place] [address] 12/29/2024 Man Tobar III, MD [address] [facility] [place] [address] 12/30/2024 Man Tobar III, MD [address] [facility] [place] [address] 01/20/2025 Man Tobar III, MD [address] [facility] [place] [address] 01/20/2025 Man Tobar III, MD [address] [facility] [place] [address] 02/04/2025 Man Tobar III, MD [address] [facility] [place] [address] 02/13/2025 Man Tobar III, MD [address] [facility] [place] [address] 02/16/2025 Man Tobar III, MD [address] [facility] [place] [address] 02/25/2025 Man Tobar III, MD [address] [facility] [place] [address] 02/27/2025 Man Tobar III, MD [address] [facility] [place] [address] 04/27/2025 Man Mcfadden R56.9 and Essential (primary) hypertension I10 Man Tobar III, MD [address] [place] [address] [place] [address] 05/27/2025 Man Tobar Assessments Encounter Date Diagnosis (ICD Code) Assessment Notes Treat ment Notes Treatment Clinical Notes 08/20/2024 Essential hypertension (ICD-10 - I10) He [...] October 05, 2025. He was admitted to [facility] where he underwent thrombectomy but not a lytic therapy. He is now living at home. He has services and therapies. His blood pressure is stable. 02/20/2025 Essential hypertension (ICD-10 - I10) His blood pressure is currently stable at 136/78 and the current regimen was continued. The systolic blood pressure will be kept below 150. 02/20/2025 Cerebrovascular accident (CVA) due to occlusion of left middle cerebral artery (ICD-10 - I63.512) This occurred on October 05, 2025. He was admitted to [facility] where he underwent thrombectomy but not a lytic therapy. He is now living at home. He has services and therapies. His blood pressure is stable. 04/06/2025 Essential hypertension (ICD-10 - I10) His blood pressure is currently stable and the current regimen was continued. The systolic blood pressure will be kept below 140. 04/06/2025 Seizure (ICD-10 - R56.9) He has had no further seizures. He has been compliant with the levetiracetam without side effects. He will continue on the current dose. 04/21/2025 Seizure (ICD-10 - R56.9) He has [...] leg has recovered and he is ambulatory. 06/23/2025 Seizure (ICD-10 - R56.9) He has had no further seizures. He has been compliant with the levetiracetam without side effects. He will continue on the current dose. 06/23/2025 Cerebrovascular accident (CVA) due to occlusion of left middle cerebral artery (ICD-10 - I63.512) This occurred on October 05, 2025. He was admitted to [facility] where he underwent thrombectomy but not a lytic therapy. He is now living at home. He has services and therapies. His blood pressure is stable. 04/27/2025 Seizure (ICD-10 - R56.9) He has had no further seizures. He has been compliant with the levetiracetam without side effects. He will continue on the current dose. 08/20/2024 Malignant neoplasm of prostate (ICD-10 - C61) There is currently no sign of relapse. I have ordered a repeat PSA.He remains in clinical remission. 01/02/2025 Overweight (ICD-10 - E66.3) His body mass index is 27. We have discussed his diet and nutrition. He will consume a diet low in calories, sodium and animal fat. 02/20/2025 Malignant neoplasm of prostate (ICD-10 - C61) His PSA in August 2024 was 0.31 consistent with biochemical relapse. He had a PSMA PET CT scan October 01, 2024 that showed no sign of metastatic disease. He will continue to be followed by urology. 04/06/2025 Malignant neoplasm of prostate (ICD-10 - C61) His PSA in August 2024 was 0.31 consistent with biochemical relapse. He had a PSMA PET CT scan October 01, 2024 that showed no sign of metastatic disease. He will continue to be followed by urology. 04/21/2025 Overweight (ICD-10 - E66.3) His body mass index is 27. We have discussed his diet and nutrition. He will consume a diet low in calories, sodium and animal fat. 06/23/2025 Overweight (ICD-10 - E66.3) His body mass index is 27. We have discussed his diet and nutrition. He will consume a diet low in calories, sodium and animal fat. 08/20/2024 Depressive disorder, not elsewhere classified (ICD-10 - F32.9) His depression is mild but present. He was continued on current therapy and will be followed carefully.. 01/02/2025 Malignant neoplasm of prostate (ICD-10 - C61) His PSA in August 2024 was 0.31 consistent with biochemical relapse. He had a PSMA PET CT scan October 01, 2024 that showed no sign of metastatic disease. He will continue to be followed by urology. 02/20/2025 Depressive disorder, not elsewhere classified (ICD-10 - F32.9) His depression is mild but present. He was continued on current therapy and will be followed carefully.. 04/06/2025 Depressive disorder, not elsewhere classified (ICD-10 - F32.9) His depression is mild but present. He was continued on current therapy and will be followed carefully.. 04/21/2025 Urinary incontinence (ICD-10 - R32) He continues to experience mild urinary incontinence. This is from the prostatectomy. 06/23/2025 Former smoker (ICD-10 - Z87.891) He stopped smoking during his last hospitalization. We made a plan for a strategy to prevent relapse in times of stress or illness. 04/27/2025 Essential (primary) hypertension (ICD-10 - I10) Electronic Prior Authorization was requested for hydrALAZINE HCl 10 MG Tablet. Provider can order medication once approval received. 08/20/2024 Urinary incontinence (ICD-10 - R32) He continues to experience mild urinary incontinence. This is from the prostatectomy. 01/02/2025 Depressive disorder, not elsewhere classified (ICD-10 - F32.9) His depression is mild but present. He was continued on current therapy and will be followed carefully.. 02/20/2025 Urinary incontinence (ICD-10 - R32) He continues to experience mild urinary incontinence. This is from the prostatectomy. 04/06/2025 Urinary incontinence (ICD-10 - R32) He [...] blood pressure will be kept below 140. 08/20/2024 Fracture of unspecified part of left clavicle, initial encounter for closed fracture (ICD-10 - S42.002A) Fracture has healed but the bone is distorted. He reports it is not painful. 01/02/2025 Urinary incontinence (ICD-10 - R32) He continues to experience mild urinary incontinence. This is from the prostatectomy. 02/20/2025 Fracture of unspecified part of left clavicle, initial encounter for closed fracture (ICD-10 - S42.002A) Fracture has healed but the bone is distorted. He reports it is not painful. 04/06/2025 Fracture of unspecified part of left clavicle, initial encounter for closed fracture (ICD-10 - S42.002A) Fracture has healed but the bone is distorted. He reports it is not painful. 04/21/2025 Essential hypertension (ICD-10 - I10) His blood pressure is currently stable and the current regimen was continued. The systolic blood pressure will be kept below 140. 06/23/2025 Depressive disorder, not elsewhere classified (ICD-10 - F32.9) His depression is mild but present. He was continued on current therapy and will be followed carefully.. 08/20/2024 Former smoker (ICD-10 - Z87.891) He stopped smoking during his last hospitalization. We made a plan for a strategy to prevent relapse in times of stress or illness. 01/02/2025 Fracture of unspecified part of left clavicle, initial encounter for closed fracture (ICD-10 - S42.002A) Fracture has healed but the bone is distorted. He reports it is not painful. 02/20/2025 Overweight (ICD-10 - E66.3) His body mass index is 27. We have discussed his diet and nutrition. He will consume a diet low in calories, sodium and animal fat. 04/06/2025 Right hemiplegia (ICD-10 - G81.91) He was able to walk with a cane. The right upper extremity is densely week. He continues home OT and PT. 04/21/2025 Malignant neoplasm of prostate (ICD-10 - C61) His PSA in August 2024 was 0.31 consistent with biochemical relapse. He had a PSMA PET CT scan October 01, 2024 that showed no sign of metastatic disease. He will continue to be followed by urology. 06/23/2025 Urinary incontinence (ICD-10 - R32) He continues to experience mild urinary incontinence. This is from the prostatectomy. 08/20/2024 Overweight (ICD-10 - E66.3) His body [...] is 21 with a creatinine of 1.53. 02/20/2025 Chronic kidney disease, stage 3a (ICD-10 - N18.31) His renal function has been stable lately. Most recent BUN is 21 with a creatinine of 1.53. 04/06/2025 Occlusion of left middle cerebral artery (ICD-10 - I66.02) 04/21/2025 Depressive disorder, not elsewhere classified (ICD-10 - F32.9) His depression is mild but present. He was continued on current therapy and will be followed carefully.. 06/23/2025 Fracture of unspecified part of left clavicle, initial encounter for closed fracture (ICD-10 - S42.002A) Fracture has healed but the bone is distorted. He reports it is not painful. 08/20/2024 Chronic kidney disease, stage 3a (ICD-10 - N18.31) When he was admitted to [facility] recently his BUN was 21 with a creatinine of 1.9. On his current medical regimen which includes a diuretic chlorthalidone his BUN is 44 and his creatinine is 1.77. He will stop the chlorthalidone and hydrated. A repeat set of labs was ordered. If necessary he will see nephrology. An ultrasound to rule out renal artery stenosis is pending. 01/02/2025 Former smoker (ICD-10 - Z87.891) He stopped smoking during his last hospitalization. We made a plan for a strategy to prevent relapse in times of stress or illness. 02/20/2025 Former smoker (ICD-10 - Z87.891) He stopped smoking during his last hospitalization. We made a plan for a strategy to prevent relapse in times of stress or illness. 04/06/2025 Overweight (ICD-10 - E66.3) His body mass index is 27. We have discussed his diet and nutrition. He will consume a diet low in calories, sodium and animal fat. 04/21/2025 Fracture of unspecified part of left clavicle, initial encounter for closed fracture (ICD-10 - S42.002A) Fracture has healed but the bone is distorted. He reports it is not painful. 06/23/2025 Right hemiplegia (ICD-10 - G81.91) He was able to walk with a cane. The right upper extremity is densely week. He continues home OT and PT. 01/02/2025 Aphasia (ICD-10 - R47.01) He is alert but aphasic. He is able to follow commands. His speech is understandable. He is not able to comprehend complex statements are commands. 02/20/2025 Expressive aphasia (ICD-10 - R47.01) 04/06/2025 Former smoker (ICD-10 - Z87.891) He stopped smoking during his last hospitalization. We made a plan for a strategy to prevent relapse in times of stress or illness. 04/21/2025 Expressive aphasia (ICD-10 - R47.01) He has had a partial recovery of speech. He is able to verbalize some things and not others. He has significant word finding difficulty. Speech is fluent however. 06/23/2025 Expressive aphasia (ICD-10 - R47.01) He has had a partial recovery of speech. He is able to verbalize some things and not others. He has significant word finding difficulty. Speech is fluent however. 01/02/2025 Right hemiplegia (ICD-10 - G81.91) He was able to walk with a cane. The right upper extremity is densely week. He continues home OT and PT. 02/20/2025 Right hemiplegia (ICD-10 - G81.91) He was able to walk with a cane. The right upper extremity is densely week. He continues home OT and PT. 04/21/2025 Right hemiplegia (ICD-10 - G81.91) He was able to walk with a cane. The right upper extremity is densely week. He continues home OT and PT. 06/23/2025 Malignant neoplasm of prostate (ICD-10 - C61) His PSA in August 2024 was 0.31 consistent with biochemical relapse. He had a PSMA PET CT scan October 01, 2024 that showed no sign of metastatic disease. He will continue to be followed by urology. 01/02/2025 Right homonymous hemianopsia (ICD-10 - H53.461) This deficit will be followed with speech ttherapy. 02/20/2025 Right homonymous hemianopsia (ICD-10 - H53.461) This deficit will be followed with speech ttherapy. 04/21/2025 Right homonymous hemianopsia (ICD-10 - H53.461) This deficit will be followed with speech ttherapy. 02/20/2025 Olecranon bursitis of right elbow (ICD-10 - M70.21) Her course and treatment of this condition was explained to him and his brother. They will had the armrests the right and use a cushion. The armrest well be elevated to a point where the shoulder does not bear the weight of the paralyzed arm. Plan Of Treatment Pending Test Test Name Order Date PROFILE, FASTING (COMPREHENSIVE METABOLI C) 01/02/2025 PROFILE, RANDOM (COMPREHENSIVE METABOLIC ) 08/13/2012 PROFILE, RANDOM (COMPREHENSIVE METABOLIC ) 10/21/2012 LIPID PANEL 01/02/2025 PSA, TOTAL 08/13/2012 PSA, TOTAL 01/02/2025 PSA, TOTAL 10/21/2012 CBC w DIFF 10/21/2012 CBC w DIFF 08/13/2012 CBC w DIFF 01/02/2025 Next Appt Details Provider Name:Man Nguyenrne , 09/22/2025 10:00:00 AM, [address] [place] [address] [address], [place], [address], Insurance Providers Payer Name Payer Address Payer Phone Subscriber Number Group Number Insured Name Patient Relationship to Insured Coverage Start Date Coverage End Date [facility] [address] [place], [place] [id number] [employer] Self - patient is the insured Medical (General) History Medical History History ICD Code fractured left clavicle left hard palate pleomorphic adenoma hypertension depression prostate cancer: Prostatecto my May 07, 2012 [id number], apical invasion,Delaplane 3+4 tobacco dependence The patient has a history of urinary leakage and is on medication for blood pressure and cholesterol. Biochemical relapse with negative PSMA P ET August 2024 Left middle cerebral artery stroke Decem 2023 Right hemiplegia with aphasia Overweight Surgical History Surgery Date(Month/Year) No history prostatectomy excision of soft palate tumor tonsillectomy Hospitalization History Reason Date(Month/Year) new onset seizure 03/31/2025
[2025-08-11 14:20] LABS: Prostate Specific Antigen 0.21 ng/mL (<0.05-4.0)
== END 2025-08-11 10:51 | disposition home or self-care (01) ==
LOC: HO.LAB 10:50
PROVIDERS: PCP Internal Medicine Medical Oncology; Visit Provider Urology
DX: Z12.5 Encounter for screening for malignant neoplasm of prostate (principal); C61 Malignant neoplasm of prostate
CPT/HCPCS: 36415; 84153

== ENCOUNTER 2025-08-25 10:46 | Outpatient (AMB) | payer BC, SELFPAY ==
--- OUTSIDE RECORDS SUMMARY | 2025-04-06 04:00 | XMS_ITS ---
Author Organization Man Tobar III, MD Address [address] [place] [address] [place] [address] Care Team Providers Care Claims Associate Name Role Phone Dr. Man Tobar III Primary Care Provider Allergies Allergen (clinical drug ingredient) Drug/Non Drug Allergy documented on EMR Reaction Allergy Type Onset Date Status Penicillin Unknown Drug Allergy Active [place]ASON FOR VISIT [place] [facility] [place] seizure, Right hemiplegia, Left cerebral infarct, Right homonymous hemianopsia, Departmental a dysphasia, History of prostate cancer, Hypertension Medications Medication SIG (Take, Route, Frequency, Duration) Notes Start Date End Date Status amLODIPine Besylate 10 MG 1 tablet Orall y Once a day 12/25/2024 Active Lisinopril 20 MG 1 tablet Orally Once a day 12/25/2024 Active Mirtazapine 7.5 MG 1 tablet Orally Once a day for 30 days 04/06/2025 Active Mirtazapine 7.5 MG 1 tablets at bedtime Orally Once a day 12/15/2024 Active levETIRAcetam 750 MG Oral Active Carvedilol 12.5 MG 1 tablet with food Orally Twice a day 12/15/2024 Active Aspirin 81 81 MG 1 tablet Orally Once a day 12/15/2024 Active Senna 8.6 MG 2 tablets at bedtime Orally Once a day 12/15/2024 Active Acetaminophen 325 MG 2 capsules Orally e very 6 hrs 12/15/2024 Active Clopidogrel Bisulfate 75 MG 1 [...] Problem Status W/U Status Risk Notes Problem [id number] Seizure (R56.9) Active confirmed He has had no further seizures. He has been compliant with the levetiracetam without side effects. He will continue on the current dose. Vital Signs Temperature 98.4 degrees Fahrenheit 04/06/20 25 Blood pressure systolic 139 mm Hg 04/06/20 25 Blood pressure diastolic 84 mm Hg 025 Heart Rate 54 /min 04/06/2025 Height 68 in 04/06/2025 Weight 181 lbs 04/06/2025 BMI 27.52 kg/m2 04/06/2025 Encounters Encounter Location Date Provider Diagnosis Man Tobar III, MD [address] [place] [address] [place] [address] 04/06/2025 Man Tobar Seizure R56.9 ; Essential hypertension I10 ; Malignant neoplasm of prostate C61 ; Depressive disorder, not elsewhere classified F32.9 ; Urinary incontinence R32 ; Fracture of unspecified part of left clavicle, initial encounter for closed fracture S42.002A ; Right hemiplegia G81.91 ; 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 He has been compliant with the levetiracetam without side effects. He will continue on the current dose. 04/06/2025 Essential hypertension (ICD-10 - I10) His blood pressure is currently stable and the current regimen was continued. The systolic blood pressure will be kept below 140. 04/06/2025 Malignant neoplasm of prostate (ICD-10 - C61) His PSA in August 2024 was 0.31 consistent with biochemical relapse. He had a PSMA PET CT scan October 01, 2024 that showed no sign of metastatic disease. He will continue to be followed by urology. 04/06/2025 Depressive disorder, not elsewhere classified (ICD-10 - F32.9) His depression is mild but present. He was continued on current therapy and will be followed carefully.. 04/06/2025 Urinary incontinence (ICD-10 - R32) He continues to experience mild urinary incontinence. This is from the prostatectomy. 04/06/2025 Fracture of unspecified part of left clavicle, initial encounter for closed fracture (ICD-10 - S42.002A) Fracture has healed but the bone is distorted. He reports it is not painful. 04/06/2025 Right hemiplegia (ICD-10 - G81.91) He was able to walk with a cane. The right upper extremity is densely week. He continues home OT and PT. 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 We have discussed his diet and nutrition. He will consume a diet low in calories, sodium and animal fat. 04/06/2025 Former smoker (ICD-10 - Z87.891) He stopped smoking during his last hospitalization. We made a plan for a strategy to prevent relapse in times of stress or illness. Plan Of Treatment Medication Medication Name Sig Start Date Stop Date Notes amLODIPine Besylate 10 MG 1 tablet Orally Once a day 12/25 Lisinopril 20 MG 1 tablet Orally Once a day 12/25/2024 Mirtazapine 7.5 MG 1 tablet Orally Once a day for 30 days 04/06/2025 Mirtazapine 7.5 MG 1 tablets at bedtime Orally Once a day 12/15/2024 levETIRAcetam 750 MG Oral Carvedilol 12.5 MG 1 tablet with food O rally Twice a day 12/15/2024 Aspirin 81 81 MG 1 tablet Orally Once a day 12/15/2024 Senna 8.6 MG 2 tablets at bedtime Orally Once a day 12/15/2024 Acetaminophen 325 MG 2 capsules Orally every 6 hrs 025 Clopidogrel Bisulfate 75 MG 1 tablet Orally Once a day Atorvastatin Calcium 80 MG 1 tablet Orally Once a day Next Appt Details Follow Up: As Scheduled, Julieth son: OV Provider Name:Man Tobar , 09/22/2025 10:00:00 AM, [address] [place] [address] [address], [address], [place], [address], Progress Notes * Familia LAMADOB:[birth year] (69 yo M)Acc No.[id number]:04/06/2025 Patient: Familia BUNN Provider: Tran Tobar MD :1955 A ge:69 Y S ex:Male Date:04/06/2025 Address:[address] [place], [place] [id number] Subjective: * Chief Complaints: * [place] [facility] [place] after seizureRight hemiplegiaLeft cerebral infarctRight homonymous hemianopsiaDepartmental a dysphasiaHistory of prostate cancerHypertension * HPI: C OVID-19 Screening: He recently had an infarction in the distribution of his left middle cerebral artery leaving him with a right hemiplegia and a partial expressive aphasia. On March 30, 2025 he had a grand mal seizure lasting 10 minutes at home. He was transferred to [facility] emergency room and admitted overnight. Evaluation showed no new cerebral disease. He was discharged on levetiracetam 750 mg twice a day which he has been taking. His blood pressure was controlled today. He appeared to be stable. He will be seen frequently in follow-up. Questions H ave you had any new onset fever, chills, cough, congestion, sore throat, shortness of breath, muscle aches? N o * ROS: G eneral/Constitutional: pain R ight arm and shoulder. C hills d enies. F atigue a dmits. F ever d enies. E NT: Decreased hearing d enies. R espiratory: Cough d enies. C ardiovascular: Chest pain with exertion d enies. D yspnea on exertion?denies. S hortness of breath d enies. G astrointestinal: Constipation d enies. D ecreased appetite d enies.?Diarrhea d enies. H eartburn d enies. N ausea d enies. R ectal bleeding?denies. V omiting d enies. H ematology: bruising d enies. p etechiae d enies. S wollen glands n one have been noted. G enitourinary: Frequent urination d enies. M usculoskeletal: Muscle aches d enies. P ainful joints d enies. S ciatica d enies. W eakness i n the right arm. S kin: Itching d enies. R claudia d enies. S kin lesion(s)?denies. N eurologic: Difficulty speaking t hat is difficulty finding words. D izziness d enies. H eadache d enies. L ow back pain d enies. P sychiatric: Depressed mood w hich is mild. * Medical History: * Surgical History: t onsillectomy excision of soft palate tumor prostatectomy No history * Hospitalization/Major Diagno stic Procedure: n ew onset seizure 03/31/2025 * Family History: F ather: 40 yrs, stroke. M other: 53 yrs, renal failure, hypertension, myocardial infarction, diagnosed with HTN. S iblings: twin brother diagnosed with prostate cancer in 02/2012, diagnosed with Cancer. 3 daughter(s) - healthy. . His siblings have sickle cell trait. He has a twin brother who was recently diagnosed with prostate cancer. * Social History: T obacco Use: T obacco Control (Standard) T obacco use: F ormer smoker H ow long has it been since you last smoked??3-6 months H e is to [employer] and is working. He was born in [place], [place]. Weight gain: The patient has been gaining weight since quitting smoking. Smoking: The patient quit smoking on the day he was hospitalized. * Medications: T akingAtorvastatin Calcium 80 MG Tablet 1 tablet Orally Once a day Aspirin 81 81 MG Tablet Delayed Release 1 tablet Orally Once a day Carvedilol 12.5 MG Tablet 1 tablet with food Orally Twice a day Clopidogrel Bisulfate 75 MG Tablet 1 tablet Orally Once a day Mirtazapine 7.5 MG Tablet 1 tablets at bedtime Orally Once a day Acetaminophen 325 MG Capsule 2 capsules Orally every 6 hrs Senna 8.6 MG Tablet 2 tablets at bedtime Orally Once a day Lisinopril 20 MG Tablet 1 tablet Orally Once a day amLODIPine Besylate 10 MG Tablet 1 tablet Orally Once a day levETIRAcetam 750 MG Tablet Oral Medication List reviewed and reconciled with the patientTaking Atorvastatin Calcium 80 MG Tablet 1 tablet Orally Once a day Taking Aspirin 81 81 MG Tablet Delayed Release 1 tablet Orally Once a day Taking Carvedilol 12.5 MG Tablet 1 tablet with food Orally Twice a day Taking Clopidogrel Bisulfate 75 MG Tablet 1 tablet Orally Once a day Taking Mirtazapine 7.5 MG Tablet 1 tablets at bedtime Orally Once a day Taking Acetaminophen 325 MG Capsule 2 capsules Orally every 6 hrs Taking Senna 8.6 MG Tablet 2 tablets at bedtime Orally Once a day Taking Lisinopril 20 MG Tablet 1 tablet Orally Once a day Taking amLODIPine Besylate 10 MG Tablet 1 tablet Orally Once a day Taking levETIRAcetam 750 MG Tablet Oral Medication List reviewed and reconciled with the patient * Allergies: P enicillinno[Allergies Verified] Objective: * Vitals: H t: 68, Wt:181, BMI:27.52, BP:139/84, HR:54, Temp:98.4, Wt-k.1. * Examination: G eneral Examination: GENERAL APPEARANCE: p leasant, well nourished, well developed, in no acute distress, calm and relaxed, overweight, man. HEAD: a traumatic, normocephalic. EYES: e brad, perrla, anicteric, conjugate. EARS: n ormal. NOSE: s eptum intact. ORAL CAVITY: n ormal, unremarkable. NECK/THYROID: n o jugular venous distention, no carotid bruit, thyroid normal. LYMPH NODES: n o enlarged lymph nodes,spleen normal. SKIN: n o suspicious lesions, anicteric. HEART: n o clicks, gallops, murmurs, or rubs, regular rhythm, S1, S2 normal, no s3, or vascular bruits. LUNGS: c lear to auscultation . BREASTS: no masses palpable bilaterally. ABDOMEN: b owel sounds normal, no ascites, no organomegaly, no mass, overweight. RECTAL EXAM: n ot examined. MUSCULOSKELETAL: e xtremities unremarkable, no clubbing, cyanosis or edema, Contractures right shoulder. PERIPHERAL PULSES: n ormal. NEUROLOGIC: a lert and oriented, cranial nerves 2-12 grossly intact, deep tendon reflexes 2+ symmetrical, motor strength normal Left upper and lower extremities, sensory exam intact, Dense right iHemiplegia, partial expressive aphasia. PSYCH: a lert, oriented, mood depressed. ? Assessment: * Assessment: 1. S eizure - R56.9 (Primary) N otes :He has had no further seizures. He has been compliant with the levetiracetam without side effects. He will continue on the current dose. 2 . E ssential hypertension - I10 N otes :His blood pressure is currently stable and the current regimen was continued. The systolic blood pressure will be kept below 140. 3 . M alignant neoplasm of prostate - C61 N otes :His PSA in August 2024 was 0.31 consistent with biochemical relapse. He had a PSMA PET CT scan October 01, 2024 that showed no sign of metastatic disease. He will continue to be followed by urology. 4 . D epressive disorder, not elsewhere classified - F32.9 N otes :His depression is mild but present. He was continued on current therapy and will be followed carefully.. 5 . U rinary incontinence - R32 N otes :He continues to experience mild urinary incontinence. This is from the prostatectomy. 6 . F racture of unspecified part of left clavicle, initial encounter for closed fracture - S42.002A N otes :Fracture has healed but the bone is distorted. He reports it is not painful. 7 . R ight hemiplegia - G81.91 N otes :He was able to walk with a cane. The right upper extremity is densely week. He continues home OT and PT. 8 . O cclusion of left middle cerebral artery - I66.02 9 .?Overweight - E66.3 N otes :His body mass index is 27. We have discussed his diet and nutrition. He will consume a diet low in calories, sodium and animal fat. 1 0. F ormer smoker - Z87.891 N otes :He stopped smoking during his last hospitalization. We made a plan for a strategy to prevent relapse in times of stress or illness. Plan: * Treatment: 2. O thers Continue Atorvastatin Calcium Tablet, 80 MG, 1 tablet, Orally, Once a day; C ontinue Aspirin 81 Tablet Delayed Release, 81 MG, 1 tablet, Orally, Once a day; C ontinue Carvedilol Tablet, 12.5 MG, 1 tablet with food, Orally, Twice a day; C ontinue Clopidogrel Bisulfate Tablet, 75 MG, 1 tablet, Orally, Once a day; C ontinue Acetaminophen Capsule, 325 MG, 2 capsules, Orally, every 6 hrs; C ontinue Senna Tablet, 8.6 MG, 2 tablets at bedtime, Orally, Once a day; C ontinue Lisinopril Tablet, 20 MG, 1 tablet, Orally, Once a day; C ontinue amLODIPine Besylate Tablet, 10 MG, 1 tablet, Orally, Once a day; S tart Mirtazapine Tablet, 7.5 MG, 1 tablet, Orally, Once a day, 30 days, 30 Tablet, Refills 11. * Procedure Codes: 9 9495 TRANS CARE MGMT 14 DAY DISCH * Preventive Medicine: Counseling: C are goal follow-up plan: Counseling for abnormal BMI given Y es Above Normal BMI Follow-up D ietary management education, guidance, and counseling S moking/Tobacco Use Patient counseled on the dangers of tobacco use and urged to quit. 0 04/06/2025 * Follow Up: A s Scheduled (Reason: OV) * Images: * Sign off status: Completed true * Provider: Tran Tobar MD Date: 0 04/06/2025 Generated for Denise patricia/Emerson/Corrieitting on: 1 10/25/2024 12:54 PM EST History and Physical Notes * HPI (History of Present Illness) Category Sub-Category Detail Notes COVID-19 Screening Questions Have you had any new onset fever, chills, cough, congestion, sore throat, shortness of breath, muscle aches?: No Examination Category Sub-Category Detail Notes General Examination GENERAL APPEARANCE: pleasant , well nourished, well developed, in no acute distress, calm and relaxed, overweight, man HEAD: atraumatic, normocep halic EYES: eomi, perrla, anicte sukh, conjugate EARS: normal NOSE: septum intact NECK/THYROID: no jugular venous di stention, no carotid bruit, thyroid normal HEART: no clicks, gallops, murmurs, or rubs, regular rhythm, S1, S2 normal, no s3, or vascular bruits LUNGS: clear to auscultatio n ABDOMEN: bowel sounds normal, no ascites, no organomegaly, no mass, overweight NEUROLOGIC: alert and oriented, cranial nerves 2-12 grossly intact, deep tendon reflexes 2+ symmetrical, motor strength normal Left upper and lower extremities, sensory exam intact, Dense right iHemiplegia, partial expressive aphasia SKIN: no suspicious lesion s, anicteric PERIPHERAL PULSES: normal BREASTS: no masses palpable b ilaterally MUSCULOSKELETAL: extremities unremark able, no clubbing, cyanosis or edema, Contractures right shoulder LYMPH NODES: no enlarged lymph no scottie,spleen normal RECTAL EXAM: not examined PSYCH: alert, oriented, moo d depressed ORAL CAVITY: normal, unremarkable
--- OUTSIDE RECORDS SUMMARY | 2025-04-17 05:15 | XMS_ITS ---
Author Organization Man Tobar III, MD Address [address] [place] [address] [place] [address] Care Team Providers Care High School Teacher Name Role Phone Dr. Man Tobar III Primary Care Provider Allergies Allergen (clinical drug ingredient) Drug/Non Drug Allergy documented on EMR Reaction Allergy Type Onset Date Status Penicillin Unknown Drug Allergy Active REASON FOR VISIT Follow up Medications Medication SIG (Take, Route, Frequency, Duration) Notes Start Date End Date Status Acetaminophen 325 MG 2 capsules Orally e very 6 hrs 12/15/2024 Active Senna 8.6 MG 2 tablets at bedtime Orally Once a day 12/15/2024 Active Carvedilol 12.5 MG 1 tablet with food Orally Twice a day 12/15/2024 Active Clopidogrel Bisulfate 75 MG 1 tablet Ora lly Once a day 12/15/2024 Active Aspirin 81 81 MG 1 tablet Orally Once a day 12/15/2024 Active Mirtazapine 7.5 MG 1 tablets at bedtime Orally Once a day 12/15/2024 Active levETIRAcetam 750 MG Oral Active amLODIPine Besylate 10 MG 1 tablet Orall y Once a day 12/25/2024 Active Atorvastatin Calcium 80 MG 1 tablet Oral ly Once a day Active Mirtazapine 7.5 MG 1 tablet Orally Once a day 04/06/2025 Active Lisinopril 20 MG 1 tablet Orally Once a day 12/25/2024 Active Social History Tobacco Use: Social History Observation Description Date Details (start date - stop date) Former Smoker NA - NA Tobacco Control (Standard) Question Answer Notes Tobacco use: Former smoker How long has it been since you last smoked? 3-6 months Encounters Encounter Location Date Provider Diagnosis Man Tobar III, MD [address] [place] [address] [address] [place] [address] 04/17/2025 Man Tobar Seizure R56.9 Assessments Encounter Date Diagnosis (ICD Code) Assessment Notes Treatment Notes Treatment Clinical Notes 04/17/2025 Seizure (ICD-10 - R56.9) He has had no further seizures. He has been compliant with the levetiracetam without side effects. He will continue on the current dose. Plan Of Treatment Medication Medication Name Sig Start Date Stop Date Notes Acetaminophen 325 MG 2 capsules Orally every 6 hrs 025 Senna 8.6 MG 2 tablets at bedtime Orally Once a day 12/15/2024 Carvedilol 12.5 MG 1 tablet with food O rally Twice a day 12/15/2024 Clopidogrel Bisulfate 75 MG 1 tablet Orally Once a day Aspirin 81 81 MG 1 tablet Orally Once a day 12/15/2024 Mirtazapine 7.5 MG 1 tablets at bedtime Orally Once a day 12/15/2024 levETIRAcetam 750 MG Oral amLODIPine Besylate 10 MG 1 tablet Orally Once a day 12/25 Atorvastatin Calcium 80 MG 1 tablet Orally Once a day Mirtazapine 7.5 MG 1 tablet Orally Once a day 04/06/2025 Lisinopril 20 MG 1 tablet Orally Once a day 12/25/2024 Next Appt Details Provider Name:Man Natalie Amadou , 09/22/2025 10:00:00 AM, [address] [place] [address] [address], [place], [address], Progress Notes * DAINAQuansdDOB:[birth year] (69 yo M)Acc No.[id number]:04/17/2025 Progress Notes Patient: Familia BUNN Provider: Tran Tobar MD :1955 A ge:69 Y S ex:Male Date:04/17/2025 Address:[address] [place], [place] [id number] Subjective: * Chief Complaints: * 1 . Follow up. * HPI: C OVID-19 Screening: Questions H ave you had any new onset fever, chills, cough, congestion, sore throat, shortness of breath, muscle aches? N o * ROS: G eneral/Constitutional: pain o nly normal aches and pains. C hills d enies.?Fatigue a dmits. F ever d enies. E [...] enies. S ciatica d enies. W eakness d enies. S kin: Itching d enies. R claudia d enies. S kin lesion(s)?denies. N eurologic: Difficulty speaking d enies. D izziness d enies.?Headache d enies. L ow back pain d enies. P sychiatric: Depressed mood d enies. * Medical History: F ractured left clavicle, Left hard palate pleomorphic adenoma, Hypertension, Depression, prostate cancer: Prostatectomy May 07, 2012 [id number], apical invasion,Rin 3+4, Tobacco dependence, The patient has a history of urinary leakage and is on medication for blood pressure and cholesterol., Biochemical relapse with negative PSMA PET August 2024, Left middle cerebral artery stroke October 05, 2024, Right hemiplegia with aphasia, Overweight. * Surgical History: t onsillectomy , excision of soft palate tumor , prostatectomy , No history . * Hospitalization/Major Diagno stic Procedure: n ew onset seizure 03/31/2025. * Family History: F ather: 40 yrs, stroke. M other: 53 yrs, renal failure, hypertension, myocardial infarction, diagnosed with HTN. S da: twin brother diagnosed with prostate cancer in [...] and is working. He was born in [place], [place]. Weight gain: The patient has been gaining weight since quitting smoking. Smoking: The patient quit smoking on the day he was hospitalized. * Medications: T aking Atorvastatin Calcium 80 MG Tablet 1 tablet Orally Once a day , Taking Aspirin 81 81 MG Tablet Delayed Release 1 tablet Orally Once a day , Taking Carvedilol 12.5 MG Tablet 1 tablet with food Orally Twice a day , Taking Clopidogrel Bisulfate 75 MG Tablet 1 tablet Orally Once a day , Taking Acetaminophen 325 MG Capsule 2 capsules Orally every 6 hrs , Taking Senna 8.6 MG Tablet 2 tablets at bedtime Orally Once a day , Taking Lisinopril 20 MG Tablet 1 tablet Orally Once a day , Taking amLODIPine Besylate 10 MG Tablet 1 tablet Orally Once a day , Taking Mirtazapine 7.5 MG Tablet 1 tablet Orally Once a day , Taking Mirtazapine 7.5 MG Tablet 1 tablets at bedtime Orally Once a day , Taking levETIRAcetam 750 MG Tablet Oral , Medication List reviewed and reconciled with the patient * Allergies: P enicillin. Objective: * Vitals: * Examination: G eneral Examination: GENERAL APPEARANCE: p leasant, well nourished, well developed, in no acute distress, calm and relaxed. HEAD: a traumatic, normocephalic. EYES: e brad, [...] sounds normal, no ascites, no organomegaly, no mass. RECTAL EXAM: n ot examined. MUSCULOSKELETAL: e xtremities unremarkable, no clubbing, cyanosis or edema. PERIPHERAL PULSES: n ormal. NEUROLOGIC: a lert and oriented, cranial nerves 2-12 grossly intact, deep tendon reflexes 2+ symmetrical, motor strength normal upper and lower extremities, sensory exam intact. PSYCH: a lert, oriented. Assessment: * Assessment: 1. S eizure - R56.9 N otes :He has had no further seizures. He has been compliant with the levetiracetam without side effects. He will continue on the current dose. Plan: * Treatment: 2. O thers Continue [...] tablet, Orally, Once a day; C ontinue Mirtazapine Tablet, 7.5 MG, 1 tablet, Orally, Once a day. * Images: * The named appointment provid er may or may not be the originator of this progress note, and it is not deemed complete until electronically signed by the appointment provider. Sign off status: Pending * Provider: rTan Tobar MD Date: 0 04/17/2025 Generated for Denise patricia/Emerson/Michael on: 10/25/2024 12:54 PM EST History and Physical [...]
--- OUTSIDE RECORDS SUMMARY | 2025-04-21 08:30 | XMS_ITS ---
Author Organization Man Tobar III, MD Address [address] [place] [address] [place] [address] Care Team Providers Care Brush Finisher Name Role Phone Dr. Man Tobar III Primary Care Provider Allergies Allergen (clinical drug ingredient) Drug/Non Drug Allergy documented on EMR Reaction Allergy Type Onset Date Status Penicillin Unknown Drug Allergy Active REASON FOR VISIT Left pontine stroke, Right hemiparesthesia, History of prostate cancer, Hypertension Medications Medication SIG (Take, Route, Frequency, Duration) Notes Start Date End Date Status levETIRAcetam 750 MG Oral Active amLODIPine Besylate 10 MG 1 tablet Orall y Once a day 12/25/2024 Active levETIRAcetam 750 MG Oral Active Mirtazapine 7.5 MG 1 tablet Orally [...] tablet Orally Once a day 12/15/2024 Active Atorvastatin Calcium 80 MG 1 tablet Oral ly Once a day Active Social History Tobacco Use: Social History Observation Description Date Details (start date - stop date) Former Smoker NA - NA Tobacco Control (Standard) Question Answer Notes Tobacco use: Former smoker How long has it been since you last smoked? 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 He has been compliant with the levetiracetam without side effects. He will continue on the current dose. 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 The right leg has recovered and he is ambulatory. 04/21/2025 Overweight (ICD-10 - E66.3) His body mass index is 27. We have discussed his diet and nutrition. He will consume a diet low in calories, sodium and animal fat. 04/21/2025 Urinary incontinence (ICD-10 - R32) He continues to experience mild urinary incontinence. This is from the prostatectomy. 04/21/2025 Former smoker (ICD-10 - Z87.891) He stopped smoking during his last hospitalization. We made a plan for a strategy to prevent relapse in times of stress or illness. 04/21/2025 Essential hypertension (ICD-10 - I10) His blood pressure is currently stable and the current regimen was continued. The systolic blood pressure will be kept below 140. 04/21/2025 Malignant neoplasm of prostate (ICD-10 - C61) His PSA in August 2024 was 0.31 consistent with biochemical relapse. He had a PSMA PET CT scan October 01, 2024 that showed no sign of metastatic disease. He will continue to be followed by urology. 04/21/2025 Depressive disorder, not elsewhere classified (ICD-10 - F32.9) His depression is mild but present. He was continued on current therapy and will be followed carefully.. 04/21/2025 Fracture of unspecified part of left clavicle, initial encounter for closed fracture (ICD-10 - S42.002A) Fracture has healed but the bone is distorted. He reports it is not painful. 04/21/2025 Expressive aphasia (ICD-10 - R47.01) He has had a partial recovery of speech. He is able to verbalize some things and not others. He has significant word finding difficulty. Speech is fluent however. 04/21/2025 Right hemiplegia (ICD-10 - G81.91) He was able to walk with a cane. The right upper extremity is densely week. He continues home OT and PT. 04/21/2025 Right homonymous hemianopsia (ICD-10 - H53.461) This deficit will be followed with speech ttherapy. Plan Of Treatment Medication Medication Name Sig Start Date Stop Date Notes levETIRAcetam 750 MG Oral amLODIPine Besylate 10 MG 1 tablet Orally Once a day 12/25 levETIRAcetam 750 MG Oral Mirtazapine 7.5 MG 1 tablet Orally Once [...] 1 tablet Orally Once a day 12/15/2024 Atorvastatin Calcium 80 MG 1 tablet Orally Once a day Next Appt Details Follow Up: 6 Weeks, Reason: Office visit Provider Name:Man Tobar , 09/22/2025 10:00:00 AM, [address] [place] [address] DR, [facility] [address], [place], [address], Progress Notes * Familia LAMADOB:[birth year] (69 yo M)Acc No.[id number]:04/21/2025 Progress Notes Patient: Familia BUNN Provider: Tran Tobar MD :1955 A ge:69 Y S ex:Male Date:04/21/2025 Address:[address] [place], [place] [id number] Subjective: * Chief Complaints: * L eft pontine strokeRight hemiparesthesiaHistory of prostate cancerHypertension * HPI: C OVID-19 Screening: He contiinues to have a dense right upper extremity paresis.? He strength is completely returned to the right work. He has occasional word finding difficulty. His speech is clear and fluent. He has some right shoulder pain and is wearing a sling. He is occasionally incontinent of urine, but this has not been a big problem for him.? His appetite is good and he says he is sleeping well. Questions H ave you had any new onset fever, chills, cough, congestion, sore throat, shortness of breath, muscle aches? N o * ROS: G eneral/Constitutional: pain R ight arm. C hills d enies. F atigue a dmits. F ever d enies. E NT: Decreased hearing d enies. R espiratory: Cough d enies. C ardiovascular: Chest pain with exertion d enies. D yspnea on exertion?denies. S hortness of breath d enies. G astrointestinal: Constipation o ccasional. D ecreased appetite d enies. D iarrhea d enies. H eartburn d enies. N ausea d enies. R ectal bleeding d enies. V omiting d enies. H ematology: bruising d enies. p etechiae d enies. S wollen glands n one have been noted. G enitourinary: Frequent urination o nce a night. M usculoskeletal: Muscle aches d enies. P ainful joints d enies. S ciatica d enies. W eakness i n the right arm. S kin: Itching d enies. R claudia d enies. S kin lesion(s)?denies. N eurologic: Difficulty speaking d enies. D izziness d enies.?Headache d enies. L ow back pain d enies. P sychiatric: Depressed mood w hich is moderate. * Medical History: * Surgical History: t [...] and is working. He was born in [place], [place]. Weight gain: The patient has been [...] Tablet 1 tablet Orally Once a day Acetaminophen 325 MG Capsule 2 capsules Orally every 6 hrs Senna 8.6 MG Tablet 2 tablets at bedtime Orally Once a day Lisinopril 20 MG Tablet 1 tablet Orally Once a day amLODIPine Besylate 10 MG Tablet 1 tablet Orally Once a day Mirtazapine 7.5 MG Tablet 1 tablet Orally Once a day levETIRAcetam 750 MG Tablet Oral Taking Atorvastatin Calcium 80 MG Tablet 1 tablet Orally Once a day Taking Aspirin 81 81 MG Tablet Delayed Release 1 tablet Orally Once a day Taking Carvedilol 12.5 MG Tablet 1 tablet with food Orally Twice a day Taking Clopidogrel Bisulfate 75 MG Tablet 1 tablet Orally Once a day Taking Acetaminophen 325 MG Capsule 2 capsules Orally every 6 hrs Taking Senna 8.6 MG Tablet 2 tablets at bedtime Orally Once a day Taking Lisinopril 20 MG Tablet 1 tablet Orally Once a day Taking amLODIPine Besylate 10 MG Tablet 1 tablet Orally Once a day Taking Mirtazapine 7.5 MG Tablet 1 tablet Orally Once a day Taking levETIRAcetam 750 MG Tablet Oral DiscontinuedlevETIRAcetam 750 MG Tablet Oral Mirtazapine 7.5 MG Tablet 1 tablets at bedtime Orally Once a day Medication List reviewed and reconciled with the patientDiscontinued levETIRAcetam 750 MG Tablet Oral Discontinued Mirtazapine 7.5 MG Tablet 1 tablets at bedtime Orally Once a day Medication List reviewed and reconciled with the patient * Allergies: P enicillinno[Allergies Verified] Objective: * Vitals: H t: 68, Wt:180, BMI:27.37, BP:118/74, HR:49, Temp:97.3, Wt-k.65. * Examination: G eneral Examination: GENERAL APPEARANCE: p rd, well nourished, well developed, in no acute [...] xtremities unremarkable, no clubbing, cyanosis or edema, Mild contractures right shoulder, trace edema right hand, trace movement shoulder none at hand, Right arm in sling. PERIPHERAL PULSES: n ormal. NEUROLOGIC: a lert and oriented, cranial nerves 2-12 grossly intact, deep tendon reflexes 2+ Left arm and leg and 3+ right arm and leg, motor strength normal upper and lowerExtremity, paralyzed right upper extremity, right lower extremity 4 out of 5, sensory exam intact, Some residual infiltration/, awake and alert and responsive to commands. PSYCH: a lert, oriented, speech diminished output, volume, mood depressed. Assessment: * Assessment: 1. O cclusion of left middle cerebral artery - I66.02 (Primary) N otes :He is now at home cared for by family. 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 The right leg has recovered and he is ambulatory. 2 . S eizure - R56.9 N otes :He has had no further seizures. He has been compliant with the levetiracetam without side effects. He will continue on the current dose. 3 . O verweight - E66.3 N otes :His body mass index is 27. We have discussed his diet and nutrition. He will consume a diet low in calories, sodium and animal fat. 4 . U rinary incontinence - R32 N otes :He continues to experience mild urinary incontinence. This is from the prostatectomy. 5 . F ormer smoker - Z87.891 N otes :He stopped smoking during his last hospitalization. We made a plan for a strategy to prevent relapse in times of stress or illness. 6 . E ssential hypertension - I10 N otes :His blood pressure is currently stable and the current regimen was continued. The systolic blood pressure will be kept below 140. 7 . M alignant neoplasm of prostate - C61 N otes :His PSA in August 2024 was 0.31 consistent with biochemical relapse. He had a PSMA PET CT scan October 01, 2024 that showed no sign of metastatic disease. He will continue to be followed by urology. 8 . D epressive disorder, not elsewhere classified - F32.9 N otes :His depression is mild but present. He was continued on current therapy and will be followed carefully.. 9 . F racture of unspecified part of left clavicle, initial encounter for closed fracture - S42.002A N otes :Fracture has healed but the bone is distorted. He reports it is not painful. 1 0. E xpressive aphasia - R47.01 N otes :He has had a partial recovery of speech. He is able to verbalize some things and not others.? He has significant word finding difficulty. Speech is fluent however. 1 1. R ight hemiplegia - G81.91 N otes :He was able to walk with a cane. The right upper extremity is densely week. He continues home OT and PT. 1 2. R ight homonymous hemianopsia - H53.461 N otes :This deficit will be followed with speech ttherapy. Plan: * Treatment: 2. S eizure Continue levETIRAcetam Tablet, 750 MG, Oral. 3. O thers Continue Atorvastatin Calcium Tablet, 80 [...] 1 tablet, Orally, Once a day. * Procedure Codes: * Preventive Medicine: Counseling: C are goal follow-up plan: Counseling for abnormal BMI given Y es Above Normal BMI Follow-up D ietary management education, guidance, and counseling S moking/Tobacco Use Patient counseled on the dangers of tobacco use and urged to quit. 0 04/21/2025 * Follow Up: 6 Weeks (Reason: Office visit) * Images: * Sign off status: Completed true * Provider: Tran Tobar MD Date: 0 04/21/2025 Generated for Denise patricia/Emerson/eTransmitting on: 10/25/2024 12:53 PM EST History and Physical Notes * [...] 2-12 grossly intact, deep tendon reflexes 2+ Left arm and leg and 3+ right arm and leg, motor strength normal upper and lowerExtremity, paralyzed right upper extremity, right lower extremity 4 out of 5, sensory exam intact, Some residual infiltration/, awake and alert and responsive to commands SKIN: no suspicious lesion s, anicteric PERIPHERAL PULSES: normal BREASTS: no masses palpable b ilaterally MUSCULOSKELETAL: extremities unremark able, no clubbing, cyanosis or edema, Mild contractures right shoulder, trace edema right hand, trace movement shoulder none at hand, Right arm in sling LYMPH NODES: no enlarged lymph no scottie,spleen normal RECTAL EXAM: not examined PSYCH: alert, oriented, spe ech diminished output, volume, mood depressed ORAL CAVITY: normal, unremarkable
--- OUTSIDE RECORDS SUMMARY | 2025-04-27 09:59 | XMS_ITS ---
Author Organization Man Tobar III, MD Address [address] [place] [address] [place] [address] Care Team Providers Care Remote Sensing Engineer Name Role Phone Dr. Man Tobar III Primary Care Provider REASON FOR VISIT pt needs RX for Levetiracetam and Hydralazine Medications Medication SIG (Take, Route, Fr equency, Duration) Notes Start Date End Date Status hydrALAZINE HCl 10 MG 1 tablet with food Orally twice a day for 30 days 04/27/2025 Active levETIRAcetam 750 MG 1 tablet Orally Twi ce a day for 30 days Active Problems Problem Type SNOMED Code ICD Code Onset Dates Problem Status W/U Status Risk Notes Problem Essential hypertension (54769689) Essential (primary) hypertension (I10) Active confirmed Encounters Encounter Location Date Provider Diagnosis Man Tobar III, MD [address] [place] [address] [place] [address] 04/27/2025 Man Tobar Seizure R56.9 and Essential (primary) hypertension I10 Assessments Encounter Date Diagnosis (ICD Code) Assessment Notes Treatment Notes Treatment Clinical Notes 04/27/2025 Seizure (ICD-10 - R56.9) He has had no further seizures. He has been compliant with the levetiracetam without side effects. He will continue on the current dose. 04/27/2025 Essential (primary) hypertension (ICD-10 - I10) Electronic Prior Authorization was requested for hydrALAZINE HCl 10 MG Tablet. Provider can order medication once approval received. Plan Of Treatment Medication Medication Name Sig Start Date Stop Date Notes hydrALAZINE HCl 10 MG 1 tablet with food Orally twice a day for 30 days 04/27/2025 levETIRAcetam 750 MG 1 tablet Orally Twi ce a day for 30 days Treatment Notes Assessment Notes Essential (primary) hypertension Electro derrek Prior Authorization was requested for hydrALAZINE HCl 10 MG Tablet. Provider can order medication once approval received. Next Appt Details Provider Name:Man Tobar , 09/22/2025 10:00:00 AM, [address] [place] [address] DR, [place] [address], [place], [address], Progress Notes * Familia LAMADOB:[birth year] (69 yo M)Acc No.[id number]:04/27/2025 Patient: Familia BUNN :1955 A ge:69 Y S ex:Male Address:[address] [place] [address] * Refills Refill levETIRAcetam Tablet, 750 MG, Orally, 60 Tablet, 1 tablet, Twice a day, 30 days, Refills=11 Start hydrALAZINE HCl Tablet, 10 MG, Orally, 60 Tablet, 1 tablet with food, twice a day, 30 days, Refills=11 Subjective: * Chief Complaints: * p t needs RX for Levetiracetam and Hydralazine * Medical History: * Surgical History: * Hospitalization/Major Diagno stic Procedure: * Medications: Objective: * Vitals: * Physical Examination: Assessment: * Assessment: 1. S eizure - R56.9 N otes :He has had no further seizures. He has been compliant with the levetiracetam without side effects. He will continue on the current dose. 2 . E ssential (primary) hypertension - I10 Plan: * Treatment: 2. E ssential (primary) hypertension Notes: Electronic Prior Authorization was requested for hydrALAZINE HCl 10 MG Tablet. Provider can order medication once approval received. 3. O thers Start hydrALAZINE HCl Tablet, 10 MG, 1 tablet with food, Orally, twice a day, 30 days, 60 Tablet, Refills 11. * Procedure Codes: * true * Date: Generated for Denise patricia/Emerson/eTransmitting on: 10/25/2024 12:54 PM EST
--- OUTSIDE RECORDS SUMMARY | 2025-05-27 05:26 | XMS_ITS ---
Author Organization Man Tobar III, MD Address [address] [facility] [address] Care Team Providers Care Chef Name Role Phone Dr. Man Tobar III Primary Care Provider REASON FOR VISIT Error Encounters Encounter Location Date Provider Diagnosis Man Tobar III, MD [address] [place] [address] [place] [address] 05/27/2025 Man Tobar Plan Of Treatment Next Appt Details Provider Name:Man oTbar , 09/22/2025 10:00:00 AM, [address] [place] [address] [address], [place], [address], Progress Notes * Familia LAMADOB:[birth year] (69 yo M)Acc No.[id number]:05/27/2025 Patient: Familia BUNN :1955 A ge:69 Y S ex:Male Address:[address] [place] [address] Subjective: * Chief Complaints: * E rror * Medical History: * Surgical History: * Hospitalization/Major Diagno stic Procedure: * Medications: Objective: * Vitals: * Physical Examination: Assessment: Plan: * Treatment: * Procedure Codes: * true * Date: Generated for Printi ng/Faxing/eTransmitting on: 10/25/2024 12:54 PM EST
--- OUTSIDE RECORDS SUMMARY | 2025-06-16 09:30 | XMS_ITS ---
Author Organization Man Tobar III, MD Address [address] [place] [address] [place] [address] Care Team Providers Care Public Health Advisor Name Role Phone Dr. Man Tobar III Primary Care Provider Allergies Allergen (clinical drug ingredient) Drug/Non Drug Allergy documented on EMR Reaction Allergy Type Onset Date Status Penicillin Unknown Drug Allergy Active REASON FOR VISIT Follow up Medications Medication SIG (Take, Route, Frequency, Duration) Notes Start Date End Date Status Mirtazapine 7.5 MG 1 tablet Orally Once a day 04/06/2025 Active amLODIPine Besylate 10 MG 1 tablet Orall y Once a day 12/25/2024 Active Lisinopril 20 MG 1 tablet Orally Once a day 12/25/2024 Active Senna 8.6 MG 2 tablets at bedtime Orally Once a day 12/15/2024 Active Acetaminophen 325 MG 2 capsules Orally e very 6 hrs 12/15/2024 Active hydrALAZINE HCl 10 MG 1 tablet with food Orally twice a day 04/27/2025 Active Clopidogrel Bisulfate 75 MG 1 tablet Ora lly Once a day 12/15/2024 Active Carvedilol 12.5 MG 1 tablet with food Orally Twice a day 12/15/2024 Active Aspirin 81 81 MG 1 tablet Orally Once a day 12/15/2024 Active Atorvastatin Calcium 80 MG 1 tablet Oral ly Once a day Active levETIRAcetam 750 MG 1 tablet Orally Twi ce a day Active Social History Tobacco Use: Social History Observation Description Date Details (start date - stop date) Former Smoker NA - NA Tobacco Control (Standard) Question Answer Notes Tobacco use: Former smoker How long has it been since you last smoked? 3-6 months Encounters Encounter Location Date Provider Diagnosis aMn Tobar III, MD [address] [place] [address] [place] [address] 06/16/2025 Man Tobar Seizure R56.9 and Occlusion of left middle cerebral artery I66.02 Assessments Encounter Date Diagnosis (ICD Code) Assessment Notes Treatment Notes Treatment Clinical Notes 06/16/2025 Seizure (ICD-10 - R56.9) He has had no further seizures. He has been compliant with the levetiracetam without side effects. He will continue on the current dose. 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 The right leg has recovered and he is ambulatory. Plan Of Treatment Medication Medication Name Sig Start Date Stop Date Notes Mirtazapine 7.5 MG 1 tablet Orally Once a day 04/06/2025 amLODIPine Besylate 10 MG 1 tablet Orally Once a day 12/25 Lisinopril 20 MG 1 tablet Orally Once a day 12/25/2024 Senna 8.6 MG 2 tablets at bedtime Orally Once a day 12/15/2024 Acetaminophen 325 MG 2 capsules Orally every 6 hrs 025 hydrALAZINE HCl 10 MG 1 tablet with food Orally twice a day 04/27/2025 Clopidogrel Bisulfate 75 MG 1 tablet Orally Once a day Carvedilol 12.5 MG 1 tablet with food O rally Twice a day 12/15/2024 Aspirin 81 81 MG 1 tablet Orally Once a day 12/15/2024 Atorvastatin Calcium 80 MG 1 tablet Orally Once a day levETIRAcetam 750 MG 1 tablet Orally Twice a day Next Appt Details Provider Name:Man Tobar , 09/22/2025 10:00:00 AM, [address] [place] [address] AJ CONNOLLY, [place]NN BENZ, [address], Progress Notes * Familia LAMADOB:[birth year] (69 yo M)Acc No.[id number]:06/16/2025 Progress Notes Patient: Familia BUNN Provider: Tran Tobar MD :1955 A ge:69 Y S ex:Male Date:06/16/2025 Address:[address] [place] [address], [id number] Subjective: * Chief Complaints: * 1 . [...] Depression, prostate cancer: Prostatectomy May 07, 2012 [id number], apical invasion,Rin 3+4, Tobacco dependence, The patient [...] and is working. He was born in [place], [place]. Weight gain: The patient has been [...] tablet Orally Once a day , Taking levETIRAcetam 750 MG Tablet 1 tablet Orally Twice a day , Taking hydrALAZINE HCl 10 MG Tablet 1 tablet with food Orally twice a day , Discontinued levETIRAcetam 750 MG Tablet Oral , Medication [...] continue on the current dose. 2 . O cclusion of left middle cerebral artery - I66.02 N otes :He is now at home cared for by family. 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 The right leg has recovered and he is ambulatory. Plan: * Treatment: 2. O thers Continue hydrALAZINE HCl Tablet, 10 MG, 1 tablet with food, Orally, twice a day; C ontinue Atorvastatin Calcium Tablet, 80 MG, 1 tablet, [...] * Provider: Tran Tobar MD Date: 0 06/16/2025 Generated for Denise patricia/Emerson/Michael on: 10/25/2024 12:55 PM EST History and Physical Notes * [...]
--- OUTSIDE RECORDS SUMMARY | 2025-06-23 05:00 | XMS_ITS ---
Author Organization Man Tobar III, MD Address [address] [place] [address] [place] [address] Care Team Providers Care Index Editor Name Role Phone Dr. Man Tobar III Primary Care Provider [phone] Allergies Allergen (clinical drug ingredient) Drug/Non Drug Allergy documented on EMR Reaction Allergy Type Onset Date Status Penicillin Unknown Drug Allergy Active Reason For Referral Reason Consult and Treat Right Upper Extremity Pain After Stroke Please call [phone] Diagnosis 1 Shoulder pain, right (M25.511) Referral Organization Man Tobar III, MD Referring Provider First Name Man Referring Provider Last Name Amadou Referring Provider Speciality Internal M edicine Referred Provider [facility] Referred Provider Specialty Physical Med [facility] General Notes Yvonne Wade 06/24/2025 02:53:56 PM > Referral and progress note faxed, Yvonne Wade 06/30/2025 10:53:54 AM > Patient has not been scheduled, patient has not been contacted. Referral Priority Routine Referral Appointment Date 07/14/2025 REASON FOR VISIT Sagging right shoulder, Right hemiparesis, Recent left cerebral stroke, Aphasia Medications Medication SIG (Take, Route, Frequency, Duration) Notes Start Date End Date Status levETIRAcetam 750 MG 1 tablet Orally Twi ce a day Active hydrALAZINE HCl 10 MG 1 tablet with food Orally twice a day 04/27/2025 Active Lisinopril 20 MG 1 tablet Orally Once a day 12/25/2024 Active amLODIPine Besylate 10 MG 1 tablet Orall y Once a day 12/25/2024 Active Mirtazapine 7.5 MG 1 tablet Orally Once a day 04/06/2025 Active Aspirin 81 81 MG 1 tablet Orally Once a day 12/15/2024 Active Carvedilol 12.5 MG 1 tablet with food Orally Twice a day 12/15/2024 Active Clopidogrel Bisulfate 75 MG 1 tablet Ora lly Once a day 12/15/2024 Active Acetaminophen 325 MG 2 capsules Orally e very 6 hrs 12/15/2024 Active Senna 8.6 MG 2 tablets at bedtime Orally Once a day 12/15/2024 Active Atorvastatin Calcium 80 MG 1 tablet Oral ly Once a day Active Social History Tobacco Use: Social History Observation Description Date Details (start date - stop date) Former Smoker NA - NA Tobacco Control (Standard) Question Answer Notes Tobacco use: Former smoker How long has it been since you last smoked? 3-6 months Vital Signs Temperature 97.9 degrees Fahrenheit 06/23/20 25 Blood pressure systolic 137 mm Hg 06/23/20 25 Blood pressure diastolic 79 mm Hg 025 Heart Rate 50 /min 06/23/2025 Height 68 in 06/23/2025 Weight 176 lbs 06/23/2025 BMI 26.76 kg/m2 06/23/2025 Encounters Encounter Location Date Provider Diagnosis Man Tobar III, MD [address] [place] [address] [place] [address] 06/23/2025 Man Tobar Seizure R56.9 ; Cerebrovascular accident (CVA) due to occlusion of left middle cerebral artery I63.512 ; Overweight E66.3 ; Former smoker Z87.891 ; Essential hypertension I10 ; Depressive disorder, not elsewhere classified F32.9 ; Urinary incontinence R32 ; Fracture of unspecified part of left clavicle, initial encounter for closed fracture S42.002A ; Right hemiplegia G81.91 ; Expressive aphasia R47.01 and Malignant neoplasm of prostate C61 Assessments Encounter Date Diagnosis (ICD Code) Assessment Notes Treat ment Notes Treatment Clinical Notes 06/23/2025 Seizure (ICD-10 - R56.9) He has had no further seizures. He has been compliant with the levetiracetam without side effects. He will continue on the current dose. 06/23/2025 Cerebrovascular accident (CVA) due to occlusion of left middle cerebral artery (ICD-10 - I63.512) This occurred on October 05, 2025. He was admitted to [facility] where he underwent thrombectomy but not a lytic therapy. He is now living at home. He has services and therapies. His blood pressure is stable. 06/23/2025 Overweight (ICD-10 - E66.3) His body mass index is 27. We have discussed his diet and nutrition. He will consume a diet low in calories, sodium and animal fat. 06/23/2025 Former smoker (ICD-1 0 - Z87.891) He stopped smoking during his last hospitalization. We made a plan for a strategy to prevent relapse in times of stress or illness. 06/23/2025 Essential hypertension (ICD-10 - I10) His blood pressure is currently stable and the current regimen was continued. The systolic blood pressure will be kept below 140. 06/23/2025 Depressive disorder, not elsewhere classified (ICD-10 - F32.9) His depression is mild but present. He was continued on current therapy and will be followed carefully.. 06/23/2025 Urinary incontinence (ICD-10 - R32) He continues to experience mild urinary incontinence. This is from the prostatectomy. 06/23/2025 Fracture of unspecified part of left clavicle, initial encounter for closed fracture (ICD-10 - S42.002A) Fracture has healed but the bone is distorted. He reports it is not painful. 06/23/2025 Right hemiplegia (ICD-10 - G81.91) He was able to walk with a cane. The right upper extremity is densely week. He continues home OT and PT. 06/23/2025 Expressive aphasia (ICD-10 - R47.01) He has had a partial recovery of speech. He is able to verbalize some things and not others. He has significant word finding difficulty. Speech is fluent however. 06/23/2025 Malignant neoplasm o f prostate (ICD-10 - C61) His PSA in August 2024 was 0.31 consistent with biochemical relapse. He had a PSMA PET CT scan October 01, 2024 that showed no sign of metastatic disease. He will continue to be followed by urology. Plan Of Treatment Medication Medication Name Sig Start Date Stop Date Notes levETIRAcetam 750 MG 1 tablet Orally Twice a day hydrALAZINE HCl 10 MG 1 tablet with food Orally twice a day 04/27/2025 Lisinopril 20 MG 1 tablet Orally Once a day 12/25/2024 amLODIPine Besylate 10 MG 1 tablet Orally Once a day 12/25 Mirtazapine 7.5 MG 1 tablet Orally Once a day 04/06/2025 Aspirin 81 81 MG 1 tablet Orally Once a day 12/15/2024 Carvedilol 12.5 MG 1 tablet with food O rally Twice a day 12/15/2024 Clopidogrel Bisulfate 75 MG 1 tablet Orally Once a day Acetaminophen 325 MG 2 capsules Orally every 6 hrs 025 Senna 8.6 MG 2 tablets at bedtime Orally Once a day 12/15/2024 Atorvastatin Calcium 80 MG 1 tablet Orally Once a day Referrals Referral Date Details 06/23/2025 06/23/2025, Consult and Treat Right Upper Extremity Pain After Stroke Please call [phone], [facility] Next Appt Details Follow Up: 3 Months, Reason: OV Provider Name:Man Tobar , 09/22/2025 10:00:00 AM, [address] [place] [address], [address], Progress Notes * Familia LAMADOB:[birth year] (69 yo M)Acc No.[id number]:06/23/2025 Progress Notes Patient: Familia BUNN Provider: Tran Tobar MD :1955 A ge:69 Y S ex:Male Date:06/23/2025 Address:[address] [place], [place] [id number] Subjective: * Chief Complaints: * S agging right shoulderRight hemiparesisRecent left cerebral strokeAphasia * HPI: v : He returns to the office with his brother for medical management of the hemiparesthesia as from the stroke and high blood pressure. His vital signs are stable. His weight is stable. The family is concerned that his right shoulder resecting and they cannot find a sling that fits. I have referred him to [facility] spine and sports rehabilitation medicine facility for definitive treatment of the shoulder. No change in his medications was necessary today. Followup was arranged. * ROS: G eneral/Constitutional: pain o nly normal aches and pains. C hills d enies.?Fatigue a dmits. F ever d enies. E NT: Decreased hearing d enies. R espiratory: Cough d enies. C ardiovascular: Chest pain with exertion d enies. D yspnea on exertion?denies. S hortness of breath w ith exertion. G astrointestinal: Constipation o ccasional. D ecreased [...] enies. S ciatica d enies. W eakness R ight hemiplegia. S kin: Itching d enies. R claudia d enies. S kin lesion(s)?denies. N eurologic: Difficulty speaking d enies. D izziness d enies.?Headache d enies. L ow back pain d enies. P sychiatric: Depressed mood d enies. * Medical History: * Surgical History: t [...] been since you last smoked??3-6 months H eduardo is to [place] and is working. He was born in [place], [place]. Weight gain: The patient has been gaining weight since quitting smoking. Smoking: The patient quit smoking on the day he was hospitalized. * Medications: T akinglevETIRAcetam 750 MG Tablet 1 tablet Orally Twice a day hydrALAZINE HCl 10 MG Tablet 1 tablet with food Orally twice a day Atorvastatin Calcium 80 MG Tablet 1 tablet [...] Tablet 1 tablet Orally Once a day Medication List reviewed and reconciled with the patientTaking levETIRAcetam 750 MG Tablet 1 tablet Orally Twice a day Taking hydrALAZINE HCl 10 MG Tablet 1 tablet with food Orally twice a day Taking Atorvastatin Calcium 80 MG Tablet 1 [...] Tablet 1 tablet Orally Once a day Medication List reviewed and reconciled with the patient * Allergies: P enicillinno[Allergies Verified] Objective: * Vitals: H t: 68, Wt:176, BMI:26.76, BP:137/79, HR:50, Temp:97.9, Wt-k.83. * Examination: G eneral Examination: GENERAL APPEARANCE: p leasant, well nourished, well developed, in no acute distress, calm and relaxed: overweight: man. HEAD: a traumatic, normocephalic. EYES: e [...] sounds normal, no ascites, no organomegaly, no mass: overweight. RECTAL EXAM: n ot examined. MUSCULOSKELETAL: e xtremities unremarkable, no clubbing, cyanosis or edema, Decreased range of motion right upper extremity, no pain to range of motion of right shoulder. PERIPHERAL PULSES: n ormal. NEUROLOGIC: a lert and oriented, cranial nerves 2-12 grossly intact, deep tendon reflexes 2+ symmetrical, motor strength normal upper and lower left extremity, sensory exam intact,, Right Hemiplegia. PSYCH: a lert, oriented. Assessment: * Assessment: 1. C erebrovascular accident (CVA) due to occlusion of left middle cerebral artery - I63.512 (Primary) N otes :This occurred on October 05, 2025. He was admitted to [facility] where he underwent thrombectomy but not a lytic therapy. He is now living at home. He has services and therapies. His blood pressure is stable. 2 . S eizure - R56.9 N [...] calories, sodium and animal fat. 4 . F ormer smoker - Z87.891 N otes :He stopped smoking during his last hospitalization. We made a plan for a strategy to prevent relapse in times of stress or illness. 5 . E ssential hypertension - I10 N otes :His blood pressure is currently stable and the current regimen was continued. The systolic blood pressure will be kept below 140. 6 . D epressive disorder, not elsewhere classified - F32.9 N otes :His depression is mild but present. He was continued on current therapy and will be followed carefully.. 7 . U rinary incontinence - R32 N otes :He continues to experience mild urinary incontinence. This is from the prostatectomy. 8 . F racture of unspecified part of left clavicle, initial encounter for closed fracture - S42.002A N otes :Fracture has healed but the bone is distorted. He reports it is not painful. 9 . R ight hemiplegia - G81.91 N otes :He was able to walk with a cane. The right upper extremity is densely week. He continues home OT and PT. 1 0. E xpressive aphasia - R47.01 N otes :He has had a partial recovery of speech. He is able to verbalize some things and not others. He has significant word finding difficulty. Speech is fluent however. 1 1. M alignant neoplasm of prostate - C61 N otes :His PSA in August 2024 was 0.31 consistent with biochemical relapse. He had a PSMA PET CT scan October 01, 2024 that showed no sign of metastatic disease. He will continue to be followed by urology. Plan: * Treatment: 2. O thers Continue [...] MG, 1 tablet, Orally, Once a day. ? Referral To:[facility] Physical Medicine Reason:Consult and Treat Right Upper Extremity Pain After Stroke Please call [phone] * Procedure Codes: * Preventive Medicine: Counseling: C are goal follow-up plan: Counseling for abnormal BMI given Y es Above Normal BMI Follow-up D ietary management education, guidance, and counseling S moking/Tobacco Use Patient counseled on the dangers of tobacco use and urged to quit. 0 06/23/2025 * Follow Up: 3 Months (Reason: OV) * Images: * Sign off status: Completed true * Provider: Tran Tobar MD Date: 0 06/23/2025 Generated for Nadinei ng/Fageorgiag/eTransmitting on: 1 10/25/2024 12:54 PM EST History and Physical Notes * Examination Category Sub-Category Detail Notes General Examination GENERAL APPEARANCE: pleasant , well nourished, well developed, in no acute distress, calm and relaxed: overweight: man HEAD: atraumatic, normocep halic EYES: eomi, perrla, anicte sukh, conjugate EARS: normal NOSE: septum intact NECK/THYROID: no jugular venous di stention, no carotid bruit, thyroid normal HEART: no clicks, gallops, murmurs, or rubs, regular rhythm, S1, S2 normal, no s3, or vascular bruits LUNGS: clear to auscultatio n ABDOMEN: bowel sounds normal, no ascites, no organomegaly, no mass: overweight NEUROLOGIC: alert and oriented, cranial nerves 2-12 grossly intact, deep tendon reflexes 2+ symmetrical, motor strength normal upper and lower left extremity, sensory exam intact,, Right Hemiplegia SKIN: no suspicious lesion s, anicteric PERIPHERAL PULSES: normal BREASTS: no masses palpable b ilaterally MUSCULOSKELETAL: extremities unremark able, no clubbing, cyanosis or edema, Decreased range of motion right upper extremity, no pain to range of motion of right shoulder LYMPH NODES: no enlarged lymph no scottie,spleen normal RECTAL EXAM: not examined PSYCH: alert, oriented ORAL CAVITY: normal, unremarkable Consultation Request Notes Referral Date Referring Provider Referred Provider Not es 06/23/2025 [facility] Right Upper Extremity Pain After Stroke Please call [phone]
--- OUTSIDE RECORDS SUMMARY | 2025-06-25 12:00 | XMS_ITS ---
Author Organization Man Tobar III, MD Address [address] [place] [address] Care Team Providers Care Protection Officer Name Role Phone Dr. Man Tobar III Primary Care Provider REASON FOR VISIT Follow up Encounters Encounter Location Date Provider Diagnosis Man Tobar III, MD [address] [place] [address] [place] [address] 06/25/2025 Man Tobar Plan Of Treatment Next Appt Details Provider Name:Man Tobar , 09/22/2025 10:00:00 AM, [address] [place] [address] [address]NO[address], [place], [address], Progress Notes * Familia LAMADOB:[birth year] (69 yo M)Acc No.[id number]:06/25/2025 Progress Notes Patient: Familia BUNN Provider: Tran Tobar MD :1955 A ge:69 Y S ex:Male Date:06/25/2025 Address:[address] [place] [id number] Subjective: * Chief Complaints: * 1 . Follow up. * Medical History: Objective: * Vitals: Assessment: Plan: * Treatment: * Images: * The named appointment provid er may or may not be the originator of this progress note, and it is not deemed complete until electronically signed by the appointment provider. Sign off status: Pending * Provider: Tran Tobar MD Date: 0 06/25/2025 Generated for Denise patricia/Emerson/Michael on: 1 10/25/2024 12:53 PM EST
--- OUTSIDE RECORDS SUMMARY | 2025-07-28 10:00 | XMS_ITS ---
Author Organization Man Tobar III, MD Address [address] [place] [address] Care Team Providers Care Central Processing Tech Name Role Phone Dr. Man Tobar III Primary Care Provider [phone] REASON FOR VISIT Colorectal Cancer Screening Encounters Encounter Location Date Provider Diagnosis Man Tobar III, MD [address] [place] [address] [place] [phone] 07/28/2025 Man Tobar Plan Of Treatment Next Appt Details Provider Name:Man Tobar , 09/22/2025 10:00:00 AM, [address] [place] [address] [address], [place], [address], Progress Notes * Familia LAMADOB:[birth year] (69 yo M)Acc No.[id number]:07/28/2025 Patient: Ruiz Familia MUHAMMAD :1955 A ge:69 Y S ex:Male Address:[address] [place] [phone] * * Date:
--- OUTSIDE RECORDS SUMMARY | 2025-08-14 04:31 | XMS_ITS ---
Author Organization Man Tobar III, MD Address [address] [place] [address] Care Team Providers Care Outside Machinist Supervisor Name Role Phone Dr. Man Tobar III Primary Care Provider [phone] REASON FOR VISIT Advise request Encounters Encounter Location Date Provider Diagnosis Man Tobar III, MD [address] [place] [address] [place] [address] 08/14/2025 Man Tobar Plan Of Treatment Next Appt Details Provider Name:Man Tobar , 09/22/2025 10:00:00 AM, [address] [place] [address] [address], [place], [address], Progress Notes * DAINA FamiliaDOB:[birth year] (69 yo M)Acc No.[id number]:08/14/2025 Patient: Familia BUNN :1955 A ge:69 Y S ex:Male Address:[address] [place] [id number] * true * Date: Generated for Printi ng/Fageorgiag/eTransmitting on: 10/25/2024 12:54 PM EST
--- NOTE | 2025-08-25 10:46 | MHC.OFFVIS ---
Intake Visit Reasons: 6m/PSA Intake Note: Patient is present for 6 mo Telehealth Urology Medication:TAMSULOSIN,OXYBUTYNIN Antibiotic Allergy:NONE Blood Thinner:NONE Labs done 08/11/25 : PSA 0.21 Wall Taper Required: No Accompanied by: Self / Same As Patient Allergies No Known Allergies Allergy (Verified 08/25/25 10:47) HPI Comments Details: Familia is a very pleasant male. He is a patient of Dr. Tobar. He is seen for the following urologic conditions - prostate cancer - recurrent PSA Telemedicine Evaluation 15 min Consultation DoxPhotofy Taylor Video Recent stroke Unable to come to office Discussion with his brother Slowly rising PSA PSA barely at threshold Completed PET-CT scan at [facility] No evidence of PSMA recurrence We will continue to follow PSA every six-month Rising PSA Imaging - 10/14 PET-CT no evidence of PSA recurrence Prostate cancer Main issue is weakness of stream, feelings of burning Diagnosed with prostate cancer in 2013. Primary therapy robotic assisted laparoscopic prostatectomy at [facility] Current PSA - 11/11 0.12, 07/15 0.3 Cystoscopy 01/09 - open bladder neck [facility] Medical History Frequent urination History of prostate cancer Family History Brother Prostate cancer Review of Systems Const All systems reviewed & are unremarkable except as noted in HPI and below Reports no additional complaints Resp Reports no additional complaints GI Reports no additional complaints Reports as per HPI Musc Reports no additional complaints Physical Exam Telemedicine evaluation Appropriate responses Regular breathing rate and rhythm HEENT Head: Yes normal to inspection Ears: hearing grossly normal bilaterally Eyes General: appearance normal, both eyes and all related structures Neck Neck: Yes normal visual inspection Chest Chest palpation & inspection: normal inspection of the chest Resp Effort & Inspection: normal respiratory effort and able to speak in complete sentences Telehealth Telehealth Telehealth Platform: [employer] Location of provider rendering services: practice address Location of patient: address on file Patient Identification confirmed using: Name, : Yes Telehealth method: video Patient verbally consented to treatment: Yes Patient verbally consented to billing insurance company: Yes Patient informed of any privacy concerns related to visit: Yes Assessment & Plan Assessment & Plan (1) Prostate cancer: Code(s): C61 - Malignant neoplasm of prostate Category: Medical (2) Weak urinary stream: Code(s): R39.12 - Poor urinary stream Category: Medical Plan Continue six-month surveillance Orders: Orders Prostate Specific Antigen 6 Months C61 - Malignant neoplasm of prostate Patient Instructions: This note is constructed using voice recognition software. While every effort has been made to ensure accuracy deep fat fry cook errors may have been included. Imaging studies, laboratory and physical exam results were discussed and reviewed in detail. No major barriers to patient understanding were identified. An opportunity to ask questions regarding the treatment plan was provided. All questions were answered. The patient expressed understanding and agreement with the above treatment plan. The patient is aware they should contact our office by phone for worsening of their current condition or the appearance of new urologic symptoms. Compliance is encouraged with any medications and followup testing that is ordered. It is a privilege to participate in the urologic care of your patient. If you have any questions or concerns regarding treatment for the above conditions, or other urologic issues, please do not hesitate to contact me. The office telephone contact is [phone]. Sincerely, Dr Cameron Wright MD, [facility] - Urology Compassionate Specialist Care for the Genitourinary System Coding Level of Care Code Tele Est Pt Level 3 (42147) Complex EM visit Add On G2211 Diagnoses Prostate cancer C61 Weak urinary stream R39.12
--- OUTSIDE RECORDS SUMMARY | 2025-08-25 12:54 | XMS_ITS | Clinical Summary ---
Author Organization [facility] Address [address] [place] [address] Care Team Providers Care Pick Up Attendant Name Role Phone Unavailable Primary Care Provider [...] Plan of Treatment Not on file Insurance [facility]
--- OUTSIDE RECORDS SUMMARY | 2025-08-25 12:55 | XMS_ITS | Clinical Summary ---
Author Organization [facility] Address [address] [place] [address] Phone Care Team Providers Care Contracts Advisor Name Role Phone Man Tobar MD Primary Care Provider [phone] Allergies No known active allergies Medications acetaminophen [...] Date/Time Associated Diagnosis Comments BASIC METABOLIC PANEL (BMP) Routine 12/09/2024 5:45 AM EST Stage 3 chronic kidney disease, unspecified whether stage 3a or 3b CKD Essential hypertension, malignant from Last 3 Months or Most Recently Relevant to Health Maintenance Results * (ABNORMAL) Basic metabolic panel (12/09/2024 5:45 AM EST) SODIUM 145 133 - 146 mmol/L [facility] CHLORIDE 110(H) 96 - 108 mmol/L [facility] POTASSIUM 4.1 3.3 - 5.1 mmol/L [facility] CO2 26 21 - 35 mmol/L [facility] BUN 16 6 - 19 mg/dL [facility] CREATININE 1.20 0.5 - 1.5 mg/dL [facility] GLUCOSE 89 70 - 99 mg/dL [facility] CALCIUM 9.0 8.4 - 10.3 mg/dL [facility] EGFR 67 >59 mL/min/1.7 3m2 [facility] Comment:Estimated glomerular filtration rate calculated using the CKD-EPI refit equation. ANION GAP 13 10 - 20 mmol/L [facility] Blood 12/09/2024 5:45 AM EST 12/09/2024 1:01 PM EST us Nupur Krishnan MD LAB BLOOD BKR ORDERABLES Final Result [address] [address] from Last 3 Months or Most Recently Relevant to Health Maintenance Insurance BLUE CROSS OUT OF STATE PPO BLUE CROSS OUT OF STATE PPO BLUE CROSS OUT OF STATE PPO BLUE CROSS OUT OF STATE PPO BLUE [employer]OSS OUT OF STATE PPO BLUE [employer]OSS OUT OF STATE PPO Advance Directives For more information, please contact: [phone] (9AM - 5PM Rupa/[facility], Sunday-Sunday) * Full Code (Latest Code Status on File) Date Activated Date Inactivated Comments 10/29/2024 5:12 PM Question Answer Comments Code Status Confirmed With: Patient Care Teams Contracts Advisor Relationship Specialty Start Date End Date Man Tobar MD [address] [place] [address] [place] [address] PCP - General Medical Oncology 10/28/24 Additional Source Comments The information contained in this document represents components of the legal health record. It is not the complete legal health record.[facility]
--- OUTSIDE RECORDS SUMMARY | 2025-08-25 12:55 | XMS_ITS | Patient Health Record ---
Author Organization Man Tobar III, MD Address [address] [place] [address] [place] [address] Care Team Providers Care Delivery Recruiter Name Role Phone Dr. Man Tobar III Primary Care Provider Allergies Allergen (clinical drug ingredient) Drug/Non Drug Allergy documented on EMR Reaction Allergy Type Onset Date Status Penicillin Unknown Drug Allergy Active Results Component Value Reference Range Notes Prostate Specific Antigen (N ot yet reviewed by provider) Interpretation: Performing Lab:[facility], [address] [place] [id number] Notes/Report: Prostate Specific Antigen 0.21 <0.05-4.0 ng/mL PSA methodology: Garcia Alibellaty i Chemiluminescent Microparticle Immunoassay (CMIA) Reason For Referral Reason Transfer of Care [...] Upper Extremity Pain After Stroke Please call [phone] Diagnosis 1 Shoulder pain, right (M25.511) Referral Organization Man Tobar III, MD Referring Provider First Name Man Referring Provider Last Name Amadou Referring Provider Speciality Internal M edicine Referred Provider [facility] Referred Provider Specialty Physical Med icine General Notes Yvonne Wade 06/24/2025 02:53:56 PM [...] Problem Status W/U Status Risk Notes Problem 0289520 Former smoker (Z87.891) Active confirmed He stopped smoking during his last hospitalizatio n. We made a plan for a strategy to prevent relapse in times of stress or illness. Problem Overweight (591718342) Overweight (E66.3) Active confirmed His body mass index is 27. We have discussed his diet and nutrition. He will consume a diet low in calories, sodium and animal fat. Problem 667846624 Malignant neoplasm of prostate (C61) Active confirmed His PSA in August 2024 was 0.31 consistent with biochemical relapse. He had a PSMA PET CT scan October 01, 2024 that showed no sign of metastatic disease. He will continue to be followed by urology. Problem Essential hypertension (10785038) Essential (primary) hypertension (I10) Active confirmed Problem 84198701 Aphasia (R47.01) Active confirmed He is alert but aphasic. He is able to follow commands. His speech is understandable . He is not able to comprehend complex statements are commands. Problem Closed fracture of clavicle (31212820) Fracture of unspecified part of left clavicle, initial encounter for closed fracture (S42.002A) Active confirmed Fracture has healed but the bone is distorted. He reports it is not painful. Problem Allergy to penicillin (09425246) Allergy status to penicillin (Z88.0) Active confirmed Problem 53735175 Essential hypertension (I10) Active confirmed His blood pressure is currently stable and the current regimen was continued. The systolic blood pressure will be kept below 140. Problem 64274984 Depressive disorder, not elsewhere classified (F32.9) Active confirmed His depression is mild but present. He was continued on current therapy and will be followed carefully.. Problem 327929939 Urinary incontinence (R32) Active confirmed He continues to experience mild urinary incontinence. This is from the prostatectomy. 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 They will had the armrests the right and use a cushion. The armrest well be elevated to a point where the shoulder does not bear the weight of the paralyzed arm. Problem 57776562 Seizure (R56.9) Active confirmed He has had no further seizures. He has been compliant with the levetiracetam without side effects. He will continue on the current dose. Problem 507249075 Right hemiplegia (G81.91) Active confirmed He was able to walk with a cane. The right upper extremity is densely week. He continues home OT and PT. Problem 688771385 Expressive aphasia (R47.01) Active confirmed He has had a partial recovery of speech. He is able to verbalize some things and not others. He has significant word finding difficulty. Speech is fluent however. Problem 401525153 Adenomatous polyp (D36.9) Active confirmed Coronary colonoscopy November 18, 2014 he had a tubular adenoma of the colon. He is likely due for colonoscopy and will be referred. Problem 855562103 Chronic kidney disease, stage 3a (N18.31) Active confirmed His renal function has been stable lately. Most recent BUN is 21 with a creatinine of 1.53. 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 The right leg has recovered and he is ambulatory. Problem 43374791381337926 Cerebrovascula r accident (CVA) due to occlusion of left middle cerebral artery (I63.512) Active confirmed This occurred on October 05, 2025. He was admitted to [facility] where he underwent thrombectomy but not a lytic therapy. He is now living at home. He has services and therapies. His blood pressure is stable. Problem 2360704 Right homonymous hemianopsia (H53.461) Active confirmed This deficit will be followed with speech ttherapy. Vital Signs Heart Rate 50 /min 06/23/2025 Temperature 97.9 degrees Fahrenheit 06/23/2025 Blood pressure diastolic 79 mm Hg 06/23/2025 Height 68 in 06/23/2025 Blood pressure systolic 137 mm Hg 06/23/2025 Weight 176 lbs 06/23/2025 BMI 26.76 kg/m2 06/23/2025 Encounters Encounter Location Date Provider Diagnosis aMn Tobar III, MD [address] [place] [address] [place] [address] 01/02/2025 Man Tobar Essential hypertensi on I10 [...] homonymous hemianopsia H53.461 Man Tobar III, MD [address] [place] [address] [place] [address] 02/20/2025 Man Tobar Essential hypertensi on I10 [...] right elbow M70.21 Man Tobar III, MD [address] [place] [address] [place] [address] 04/06/2025 Man Tobar Seizure R56.9 ; Essential hypertension I10 ; Malignant neoplasm of prostate C61 ; Depressive disorder, not elsewhere classified F32.9 ; Urinary incontinence R32 ; Fracture of unspecified part of left clavicle, initial encounter for closed fracture S42.002A ; Right hemiplegia G81.91 ; Occlusion of left middle cerebral artery I66.02 ; Overweight E66.3 and Former smoker Z87.891 Man Tobar III, MD [address] [place] [address] [place] [address] 04/21/2025 Man Tobar Seizure R56.9 ; Occlusion [...] homonymous hemianopsia H53.461 Man Tobar III, MD [address] [place] [address] [place] [address] 06/23/2025 Man Tobar Seizure R56.9 ; Cerebrovascular [...] of prostate C61 Man Tobar III, MD [address] [place] [address] [place] [address] 07/28/2025 Man Tobar III, MD [address] [place] [address] [place] [address] 10/06/2024 Man Tobar III, MD [address] [place] [address] [place] [address] 12/15/2024 Man Tobar III, MD [address] [place] [address] [place] [address] 12/17/2024 Man Tobar III, MD [address] [place] [address] [place] [address] 12/18/2024 Man Tobar III, MD [address] [place] [address] [place] [address] 12/19/2024 Man Tobar III, MD [address] [place] [address] [place] [address] 12/22/2024 Man Tobar III, MD [address] [place] [address] [place] [address] 12/24/2024 Man Tobar III, MD [address] [facility] [place] [address] 12/25/2024 Man Tobar III, MD [address] [facility] [place] [place] [address] 12/26/2024 Man Tobar III, MD [address] [facility] [place] [place] [address] 12/29/2024 Man Tobar III, MD [address] [facility] [place] [place] [address] 12/30/2024 Man Tobar III, MD [address] [facility] [place] [place] [address] 01/20/2025 Man Tobar III, MD [address] [facility] [place] [place] [address] 01/20/2025 Man Tobar III, MD [address] [facility] [place] [place] [address] 02/04/2025 Man Tobar III, MD [address] [facility] [place] [place] [address] 02/13/2025 Man Tobar III, MD [address] [facility] [place] [place] [address] 02/16/2025 Man Tobar III, MD [address] [facility] [place] [place] [address] 02/25/2025 Man Tobar III, MD [address] [facility] [place] [address] 02/27/2025 Man Tobar III, MD [address] [facility] [place] [place] [address] 04/27/2025 Man Tobar Seizure R56.9 and Essential (primary) hypertension I10 Man Tobar III, MD [address] [facility] [place] [place] [address] 05/27/2025 Man Tobar III, MD [address] [facility] [place] [address] 08/14/2025 Man Tobar Assessments Encounter Date Diagnosis (ICD Code) Assessment Notes Treat ment Notes Treatment Clinical Notes 01/02/2025 Essential hypertension (ICD-10 - I10) His blood pressure is currently stable and the current regimen was continued. The systolic blood pressure will be kept below 150. 01/02/2025 Cerebrovascular accident (CVA) due to occlusion of left middle cerebral artery (ICD-10 - I63.512) This occurred on October 05, 2025. He was admitted to [facility] where he underwent thrombectomy but not [...] October 05, 2025. He was admitted to [facility] where he underwent thrombectomy but not [...] October 05, 2025. He was admitted to [facility] where he underwent thrombectomy but not a lytic therapy. He is now living at home. He has services and therapies. His blood pressure is stable. 04/27/2025 Seizure (ICD-10 - R56.9) He has had no further seizures. He has been compliant with the levetiracetam without side effects. He will continue on the current dose. 01/02/2025 Overweight (ICD-10 - E66.3) His body [...] low in calories, sodium and animal fat. 01/02/2025 Malignant neoplasm of prostate (ICD-10 - [...] Provider can order medication once approval received. 01/02/2025 Depressive disorder, not elsewhere classified (ICD-10 [...] blood pressure will be kept below 140. 01/02/2025 Urinary incontinence (ICD-10 - R32) He [...] therapy and will be followed carefully.. 01/02/2025 Fracture of unspecified part of left [...] incontinence. This is from the prostatectomy. 01/02/2025 Chronic kidney disease, stage 3a (ICD-10 [...] He reports it is not painful. 01/02/2025 Former smoker (ICD-10 - Z87.891) He [...] w DIFF 08/13/2012 CBC w DIFF 01/02/2025 Prostate Specific Antigen 08/11/2025 Next Appt Details Provider Name:Man Tobar , 09/22/2025 10:00:00 AM, [address] [place] [address] [address], [place], [address], Insurance Providers Payer Name Payer Address Payer Phone Subscriber Number Group Number Insured Name Patient Relationship to Insured Coverage Start Date Coverage End Date [facility] [address] [place], [place] [id number] [phone] [id number] Familia Spence Self - patient is the insured Medical (General) History Medical History History ICD Code fractured left clavicle left hard palate pleomorphic adenoma hypertension depression prostate cancer: Prostatecto my May 07, 2012 [id number], apical invasion,Rin 3+4 tobacco dependence The patient has a [...]
== END 2025-08-25 16:07 | disposition home or self-care (01) ==
LOC: HO.HUSH 10:46
PROVIDERS: PCP Internal Medicine Medical Oncology; Visit Provider Urology
DX: C61 Malignant neoplasm of prostate (principal); R39.12 Poor urinary stream
CPT/HCPCS: 99213